=== PATIENT | female | born 1990 | race Caucasian/White ===

== ENCOUNTER → 2021-01-11 08:51 | Outpatient (BNVA) | payer MEDICAID, SELFPAY | PROVIDERS: PCP Family Medicine; Visit Provider Urology | DX: R31.29 Other microscopic hematuria (principal); N39.0 Urinary tract infection, site not specified | CPT/HCPCS: 81002; 99212 ==

== ENCOUNTER 2021-02-02 08:39 | Outpatient (REF) | payer MEDICAID, SELFPAY ==
--- NOTE | ~2021-02-02 | US_ITS ---
EXAMINATION: US ABDOMEN COMPLETE CLINICAL INFORMATION: Nausea with vomiting. COMPARISON: KUB dated 07/13/2019. CT abdomen and pelvis without contrast dated 06/29/2019. Ultrasound renals only dated 12/03/2018. Ultrasound abdomen complete dated 10/17/2016. TECHNIQUE: Real-time imaging of the abdominal viscera. FINDINGS: PANCREAS: Normal. ABDOMINAL AORTA: The proximal, mid, and distal segments are normal in caliber. INFERIOR VENA CAVA: Visualized portions are normal. LIVER: Normal. The liver is normal in size. The liver contour is normal. Parenchymal echogenicity is normal. No focal hepatic lesion. There is no intrahepatic biliary duct dilatation seen. GALLBLADDER: Normal. The gallbladder is physiologically distended without evidence of stones, sludge, polyps, wall thickening or pericholecystic fluid. COMMON BILE DUCT: Normal in caliber measuring 0.11 cm in diameter. RIGHT KIDNEY: Normal. No hydronephrosis. No renal calculi or focal parenchymal lesions. The kidney measures 10.8 cm in maximum dimension. LEFT KIDNEY: Normal. No hydronephrosis. No renal calculi or focal parenchymal lesions. The kidney measures 10.5 cm in maximum dimension. SPLEEN: Normal. The spleen measures 6.8 cm in maximum dimension. FREE FLUID: None. US/US abdomen complete IMPRESSION: Normal abdominal ultrasound.
== END 2021-02-02 08:40 | disposition home or self-care (01) ==
LOC: HO.US 08:39
PROVIDERS: PCP Family Medicine; Visit Provider Family Medicine
DX: R11.2 Nausea with vomiting, unspecified (principal)
CPT/HCPCS: 76700

== ENCOUNTER 2021-06-03 11:28 | Outpatient (REF) | payer MEDICAID, SELFPAY ==
--- NOTE | ~2021-06-03 | MM_ITS ---
EXAMINATION: MM SCREENING DIGITAL BREAST TOMOSYNTHESIS, BILATERAL CLINICAL INFORMATION: Screening. Asymptomatic. The lifetime risk of breast cancer based on the Tyrer-Cuzick Model is 16.4%. COMPARISON: Mammography: None TECHNIQUE: Digital breast tomosynthesis is performed in both the craniocaudal and mediolateral oblique views along with computer-aided detection (CAD). Synthesized 2D images are generated from the tomosynthesis. FINDINGS: The breasts are extremely dense, which lowers the sensitivity of mammography (ACR BI-RADS breast composition Category d). There are no significant masses, abnormal calcifications, or other abnormalities. Benign appearing calcifications about the areolar aspect of the left breast. Ultrasound examination of November 23, 2006 showed some rim calcified cyst within the retroareolar region of the right breast. MM/MM tomosynthesis screening BI IMPRESSION: No specific mammographic findings to suggest malignancy. ASSESSMENT: BI-RADS 2: Benign RECOMMENDATION: Routine annual mammography screening. This patient's information was entered into a reminder system with a target due date for their next mammogram.
== END 2021-06-03 11:29 | disposition home or self-care (01) ==
LOC: HO.MAMMO 11:28
PROVIDERS: Visit Provider Family Medicine
DX: Z12.31 Encounter for screening mammogram for malignant neoplasm of breast (principal)
CPT/HCPCS: 77063; 77067

== ENCOUNTER 2021-07-01 08:31 | Emergency (ER) | payer MEDICAID, SELFPAY ==
--- NOTE | ~2021-07-01 | CT_ITS ---
EXAMINATION: CT HEAD WITHOUT CONTRAST CLINICAL INFORMATION: Headache. New onset seizures. COMPARISON: MR brain dated 06/15/2020. TECHNIQUE: Contiguous axial imaging was performed from the skull base to vertex without intravenous administration of contrast. This CT examination was performed using dose optimization techniques as appropriate, variously including the following: *Automated exposure control *Adjustment of mA and/or kV according to patient size (this includes techniques or standardized protocols for targeted exams where dose is matched to indication/reason for exam; i.e. extremities or head) *Use of iterative reconstruction technique DLP: 532 mGy-cm FINDINGS: There is no evidence of acute intracranial hemorrhage or territorial infarction. No abnormal mass effect or midline shift is seen. Vora to white matter differentiation is well preserved. No extra-axial fluid collections are identified. The ventricles are normal in size. There is no abnormal attenuation within the brain parenchyma. The osseous structures and soft tissues are normal. Mucoperiosteal thickening of the left sphenoid sinus. Otherwise, the visualized paranasal sinuses and mastoid air cells are clear. CT/CT head/brain wo con IMPRESSION: No acute intracranial hemorrhage or mass effect.
[2021-07-01 09:24] VITALS: BP 98/69; PULSE 78; RESP 16; TEMP 36.6; O2SAT 98; BMI 15.7
--- NOTE | 2021-07-01 10:15 | ED_ITS ---
HPI - General Adult General Chief complaint: General Medical Stated complaint: seizure Time Seen by Provider: 07/01/21 10:08 Source: patient Mode of arrival: ambulatory Limitations: no limitations History of Present Illness HPI narrative: Patient comes to emergency room complaining of not feeling well for about 1 week. Patient states 4 days ago and 1 day ago she had seizures while she was sleeping. Patient states that she has been worked up for seizures at [facility] the beginning of the year, patient states they did an EEG but she has not the results or has not follow-up with Neurology. Over last few days, patient states that her boyfriend woke her up because she was having seizures, patient had urinary incontinence, no tongue biting. Patient was seen by her primary care physician today, according to the patient she was restarted on gabapentin. Patient states she will know why she was previously taking gabapentin, another physician asked her to stop taking of bending completely, then as mentioned above, she was asked in the last couple of days to restarted again. Related Data Home Medications Medication Instructions Recorded Confirmed quetiapine 25 mg tablet (Seroquel) 25 mg PO BEDTIME 01/11/21 Previous Rx's Medication Instructions Recorded nitrofurantoin 100 mg PO BID #14 cap 07/01/21 monohydrate/macrocrystals 100 mg capsule (Macrobid) Allergies Allergy/AdvReac Type Severity Reaction Status Date / Time Iodinated Contrast Media Allergy Severe ANAPHYLAXIS Verified 01/11/21 08:59 [IVP DYE] shellfish derived Allergy Severe ANAPHYLAXIS Verified 01/11/21 08:59 [SHELLFISH DERIVED] shrimp [SHRIMP] Allergy Severe ANAPHYLAXIS Verified 01/11/21 08:59 IV contrast Allergy Unknown swelling, Uncoded 02/18/20 00:00 rash, SOB IV contrast Dy Allergy Unknown hives, Uncoded 03/25/19 00:00 shortness of breath Review of Systems Review of Systems: Constitutional : No Weight loss, No Fever, No Chills, No Night Sweats, laying of fatigue and generalized malaise ENT/Mouth : No Hearing loss, No Ear Pain, No Nasal Congestion, No Sinus Pain, No Hoarseness, No sore throat, No Rhinorrhea, No Swallowing Difficulty Eyes: No Eye Pain, No Swelling, No Redness, No Foreign Body, No Discharge, No Vision Changes Cardiovascular : No Chest Pain, No SOB, No Dyspnea on Exertion, No Orthopnea, No Edema, No Palpitations Respiratory : No Cough, No Sputum, No Wheezing, No Smoke Exposure, No Dyspnea Gastrointestinal : No Nausea, No Vomiting, No Diarrhea, No Constipation, No abdominal Pain, No Hematochezia, No Melena Genitourinary : no irregular bleeding, No Dysuria, No Urinary Frequency, No Hematuria, No Urinary Incontinence, No Urgency, No Flank Pain, No Urinary Flow Changes, No Hesitancy Musculoskeletal : No joint pain, No Myalgias, No Joint Swelling Skin : No Skin Lesions, No rash Neuro : No Weakness, No Numbness, No Paresthesias, complaining of headaches, seizures Psych : No Anxiety/Panic, No Depression, No SI/HI/AH/VH, No Social Issues, Heme/Lymph: No Bruising, No Bleeding,No Lymphadenopathy Endocrine : No Polyuria, No Polydipsia, No Temperature Intolerance [facility] Past Medical History Medical History (Updated 07/01/21 @ 12:40 by Joaquina Dunn MD) Anxiety Bipolar disorder Cervical lymphadenopathy Chronic fatigue Chronic post-traumatic stress disorder (PTSD) Depression Dysphagia Fibromyalgia Lumbar sprain Microscopic hematuria 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 Oriented X3. No acute distress. Eyes: Pupils equal, round and reactive to light. ENT: Pharynx normal. Neck: Normal inspection. Neck supple. No lymph nodes noted. No crepitus CVS: Normal heart rate and rhythm. Pulses normal. Normal S1 and S2 Respiratory: No respiratory distress. Breath sounds normal. No Wheezing. No rales Abdomen: Soft and nontender. No rigidity. No distention. good BS x4 Skin: Skin warm and dry. Normal skin color. Normal skin turgor. Extremities: No lower extremity edema. No Lacerations. No Rash Neuro: Oriented X 3. No motor deficit. No sensory deficit. Moving all extermities. No slurred speech. Course Course Course Narrative: We received records from [facility]. Patient was admitted from 02/22/2021 to 02/26/2021 for evaluation of seizure-like activity. Ambulatory EEG which was done on 12/09/2020 was normal, MRI done on 01/18/2021 was normal, showed no intracranial mass or mesial temporal sclerosis. Patient also had an outpatient cardiac workup which was normal. Gabapentin was not continued for fibromyalgia when patient was discharged. Seems that patient has this seizure- like activity during times of stress. Urinalysis from yesterday shows positive nitrates. Patient will be treated for UTI. Patient did not provide a urine sample here in the emergency room. Patient's CT scan , labs show no acute pathology. Patient likely having pseudoseizures. At this time, anti epileptics will not be started. Patient instructed to follow-up with neurology Medical Decision Making Lab Data Result diagrams: 07/01/21 11:43 07/01/21 11:42 Labs: Lab Results 07/01/21 07/01/21 07/01/21 Range/Units 11:42 11:42 11:42 WBC (4.8-10.8) X10*3/uL RBC (4.20-5.50) X10*6/uL Hgb (12.0-16.0) g/dl Hct (37-47) % MCV (80-98) fL MCH (27.0-33.0) pg MCHC (31.0-35.0) g/dl RDW (11.0-16.0) % Plt Count (160-400) X10*3/uL MPV (9.4-12.3) fL Immature Gran % (Auto) (0.0-0.4) % Neut % (Auto) (45-73) % Lymph % (Auto) (20-40) % [place] % (Auto) (2-11) % Eos % (Auto) (0-4) % Baso % (Auto) (0-2) % Lymph # (Auto) (1.2-4.9) X10*3/uL [place] # (Auto) (0.1-1.2) X10*3/uL Eos # (Auto) (0.0-0.4) X10*3/uL Baso # (Auto) (0.0-0.2) X10*3/uL Abs Immat Gran (auto) (0.00-0.03) X10*3/uL Absolute Neuts (auto) (2.0-8.3) X10*3/uL Absolute Nucleated RBC (0.0-0.012) X10*3/uL Nucleated RBC % (auto) (0.0-0.2) /100WBC Sodium 140 (135-145) mmol/L Potassium 4.3 (3.3-5.1) mmol/L Chloride 107 (96-108) mmol/L Carbon Dioxide 28 (22-29) mmol/L Anion Gap 9 L (12-20) BUN 6 L (9-16) mg/dL Creatinine 0.61 (0.5-1.4) mg/dL Estim Creat Clear Calc 74.6 Estimated GFR > 60 Random Glucose 89 (60-115) mg/dL Lactic Acid 0.8 (0.5-2.0) mmol/L Calcium 9.2 (8.4-10.2) mg/dL Total Bilirubin 0.8 (0.0-1.0) mg/dL Direct Bilirubin 0.2 (0.0-0.5) mg/dL AST 15 (5-31) U/L ALT 10 (0-31) U/L Alkaline Phosphatase 65 (39-117) U/L Total Protein 6.4 L (6.5-8.0) g/dL Albumin 4.3 (3.5-5.0) g/dL Beta HCG, Quant < 2 mIU/mL COVID-19 ([facility]) Negative (Negative) COVID-19 Clin Com See Note 07/01/21 Range/Units 11:43 WBC 8.5 (4.8-10.8) X10*3/uL RBC 4.32 (4.20-5.50) X10*6/uL Hgb 13.1 (12.0-16.0) g/dl Hct 38.8 (37-47) % MCV 89.8 (80-98) fL MCH 30.3 (27.0-33.0) pg MCHC 33.8 (31.0-35.0) g/dl RDW 12.9 (11.0-16.0) % Plt Count 242 (160-400) X10*3/uL MPV 9.2 L (9.4-12.3) fL Immature Gran % (Auto) 0.2 (0.0-0.4) % Neut % (Auto) 56.9 (45-73) % Lymph % (Auto) 31.2 (20-40) % [place] % (Auto) 8.5 (2-11) % Eos % (Auto) 2.1 (0-4) % Baso % (Auto) 1.1 (0-2) % Lymph # (Auto) 2.6 (1.2-4.9) X10*3/uL [place] # (Auto) 0.7 (0.1-1.2) X10*3/uL Eos # (Auto) 0.2 (0.0-0.4) X10*3/uL Baso # (Auto) 0.1 (0.0-0.2) X10*3/uL Abs Immat Gran (auto) 0.02 (0.00-0.03) X10*3/uL Absolute Neuts (auto) 4.8 (2.0-8.3) X10*3/uL Absolute Nucleated RBC 0.000 (0.0-0.012) X10*3/uL Nucleated RBC % (auto) 0.0 (0.0-0.2) /100WBC Sodium (135-145) mmol/L Potassium (3.3-5.1) mmol/L Chloride (96-108) mmol/L Carbon Dioxide (22-29) mmol/L Anion Gap (12-20) BUN (9-16) mg/dL Creatinine (0.5-1.4) mg/dL Estim Creat Clear Calc Estimated GFR Random Glucose (60-115) mg/dL Lactic Acid (0.5-2.0) mmol/L Calcium (8.4-10.2) mg/dL Total Bilirubin (0.0-1.0) mg/dL Direct Bilirubin (0.0-0.5) mg/dL AST (5-31) U/L ALT (0-31) U/L Alkaline Phosphatase (39-117) U/L Total Protein (6.5-8.0) g/dL Albumin (3.5-5.0) g/dL Beta HCG, Quant mIU/mL COVID-19 ([facility]) (Negative) COVID-19 Clin Com Imaging Data CT scan - head: Radiologist's impression: There is no evidence of acute intracranial hemorrhage or territorial infarction. No abnormal mass effect or midline shift is seen. Vora to white matter differentiation is well preserved. No extra-axial fluid collections are identified. The ventricles are normal in size. There is no abnormal attenuation within the brain parenchyma. The osseous structures and soft tissues are normal. Mucoperiosteal thickening of the left sphenoid sinus. Otherwise, the visualized paranasal sinuses and mastoid air cells are clear. ? CT/CT head/brain wo con IMPRESSION: No acute intracranial hemorrhage or mass effect. Discharge Plan Discharge Clinical Impression: Malaise, UTI (urinary tract infection) Patient Disposition: Home, Self-Care Instructions: Weakness (ED), Fatigue (ED) Prescriptions: New nitrofurantoin monohyd/m-cryst [Macrobid] 100 mg capsule 100 mg PO BID Qty: 14 RF: 0
[2021-07-01 11:46] LABS: MANUAL DIFF FLAG NO
[2021-07-01 11:48] LABS: Basophils Absolute Auto 0.1 X10*3/uL (0.0-0.2); Basophils Percent Auto 1.1 % (0-2); Eosinophils Absolute Auto 0.2 X10*3/uL (0.0-0.4); Eosinophils Percent Auto 2.1 % (0-4); Hematocrit 38.8 % (37-47); Hemoglobin 13.1 g/dl (12.0-16.0); Imm Gran Abs Auto 0.02 X10*3/uL (0.00-0.03); Imm Gran Pct Auto 0.2 % (0.0-0.4); Lymphocytes Absolute Auto 2.6 X10*3/uL (1.2-4.9); Lymphocytes Percent Auto 31.2 % (20-40); Mean Corpuscular HGB Conc 33.8 g/dl (31.0-35.0); Mean Corpuscular Hemoglobin 30.3 pg (27.0-33.0); Mean Corpuscular Volume 89.8 fL (80-98); Mean Platelet Volume 9.2 fL (9.4-12.3); Monocytes Absolute Auto 0.7 X10*3/uL (0.1-1.2); Monocytes Percent Auto 8.5 % (2-11); Neutrophils Absolute Auto 4.8 X10*3/uL (2.0-8.3); Neutrophils Percent Auto 56.9 % (45-73); Platelet Count 242 X10*3/uL (160-400); Red Blood Count 4.32 X10*6/uL (4.20-5.50); Red Cell Distribution Width 12.9 % (11.0-16.0); White Blood Count 8.5 X10*3/uL (4.8-10.8)
[2021-07-01 12:04] LABS: Lactic Acid 0.8 mmol/L (0.5-2.0)
[2021-07-01 12:05] LABS: COVID-19 Test Negative (Negative); IDNOW Serial# 9DD0AD1C
[2021-07-01 12:11] LABS: HCG Quantitative < 2 mIU/mL
[2021-07-01 12:12] LABS: Alanine Aminotransferase 10 U/L (0-31); Albumin Level 4.3 g/dL (3.5-5.0); Alkaline Phosphatase 65 U/L (39-117); Anion Gap 9 (12-20); Aspartate Amino Transferase 15 U/L (5-31); Bilirubin Direct 0.2 mg/dL (0.0-0.5); Bilirubin Total 0.8 mg/dL (0.0-1.0); Blood Urea Nitrogen 6 mg/dL (9-16); Calcium 9.2 mg/dL (8.4-10.2); Carbon Dioxide 28 mmol/L (22-29); Chloride 107 mmol/L (96-108); Creatinine Clr Calc Pharmacy 74.6; Estimated Glomerular Filt Rate > 60; Glucose Random 89 mg/dL (60-115); Potassium 4.3 mmol/L (3.3-5.1); Sodium 140 mmol/L (135-145); Total Protein 6.4 g/dL (6.5-8.0)
== END 2021-07-01 13:07 | disposition home or self-care (01) ==
PROVIDERS: Emergency Provider Emergency Medicine; PCP Family Medicine
DX: N39.0 Urinary tract infection, site not specified (principal); R53.81 Other malaise; R56.9 Unspecified convulsions; Z20.822 Contact with and (suspected) exposure to COVID-19; Z79.899 Other long term (current) drug therapy
CPT/HCPCS: 36415; 70450; 80048; 80076; 83605; 84702; 85025; 87635; 99283; 99284

== ENCOUNTER 2022-01-31 11:14 | Emergency (ER) | payer MEDICAID, SELFPAY ==
[2022-01-31 12:04] VITALS: BP 113/64; PULSE 100; RESP 19; TEMP 37.2; O2SAT 98; BMI 20.2
[2022-01-31 12:30] LABS: COVID-19 Test Negative (Negative); IDNOW Serial# 16C4AD1C; Influenza A Positive (Negative); Influenza B2 Negative (Negative)
[2022-01-31 14:57] VITALS: PULSE 96; O2SAT 100
--- NOTE | 2022-01-31 15:36 | ED.URI ---
HPI - URI/Sore Throat General Chief Complaint: Upper Respiratory Symptoms Stated Complaint: fever 22 wks back pain Time Seen by Provider: 01/31/22 14:48 Source: patient Mode of arrival: ambulatory Limitations: no limitations History of Present Illness HPI Narrative: 31-year-old 22 week female presents with fever, body aches, cough, nasal congestion, that started 2 days ago but became worse yesterday. Patient states she has bilateral low back pain, no pelvic pain, no vaginal bleeding, no vaginal discharge, no pelvic cramping. Patient has been taking Tylenol, she does not have an inhaler at home, but has used inhalers in the past for upper respiratory infection Related Data Home Medications Medication Instructions Recorded Confirmed quetiapine 25 mg tablet (Seroquel) 25 mg PO BEDTIME 01/11/21 Previous Rx's Medication Instructions Recorded nitrofurantoin 100 mg PO BID #14 cap 07/01/21 monohydrate/macrocrystals 100 mg capsule (Macrobid) albuterol sulfate 90 mcg/actuation 2 puff INHALATION Q4-6H PRN #6.7 g 01/31/22 aerosol inhaler oseltamivir 75 mg capsule 75 mg PO BID 5 Days #10 cap 01/31/22 Allergies Allergy/AdvReac Type Severity Reaction Status Date / Time Iodinated Contrast Media Allergy Severe ANAPHYLAXIS Verified 01/31/22 12:04 [IVP DYE] shellfish derived Allergy Severe ANAPHYLAXIS Verified 01/31/22 12:04 [SHELLFISH DERIVED] shrimp [SHRIMP] Allergy Severe ANAPHYLAXIS Verified 01/31/22 12:04 IV contrast Allergy Unknown swelling, Uncoded 01/31/22 12:04 rash, SOB IV contrast Dy Allergy Unknown hives, Uncoded 01/31/22 12:04 shortness of breath Review of Systems Constitutional: Constitutional: Reports body ache(s), Reports chills, Reports fatigue, Reports fever(s), Reports headache(s), Reports malaise and Denies weakness Eyes: Eyes: Denies diplopia ENT: Denies vertigo, Denies dizziness, Denies otalgia, Reports headache(s), Denies mouth pain, Denies post nasal drip, Denies sinus pain, Denies sinus pressure, Denies sore throat and Denies throat swelling Cardiovascular: Cardiovascular: Denies chest pain, Denies syncope, Denies leg edema, Denies lightheadedness, Denies Loss of Consciousness, Denies palpitations and Denies dyspnea Respiratory: Respiratory: Denies chest congestion, Reports cough, Denies pain on inspiration, Denies dyspnea and Denies wheezing Gastrointestinal: Gastrointestinal: Denies abdominal pain, Denies hematochezia, Denies constipation, Denies diarrhea, Denies nausea and Denies vomiting Genitourinary: Genitourinary: Denies abnormal vaginal bleeding, Denies pelvic pain and Denies vaginal discharge Musculoskeletal: Musculoskeletal: Reports back pain and Reports myalgias Neurologic: Denies confusion, Denies vertigo, Denies dizziness, Denies syncope, Reports headache(s) and Denies weakness Psychiatric: Psychiatric: Denies anxiety, Denies confusion and Denies depression Endocrine: Endocrine: Reports fatigue and Denies palpitations Allergic/Immunologic: Allergic/Immunologic: Denies throat swelling and Denies wheezing PMFSH Past Medical History Medical History Anxiety Bipolar disorder Cervical lymphadenopathy Chronic fatigue Chronic post-traumatic stress disorder (PTSD) Depression Dysphagia Fibromyalgia Lumbar sprain Microscopic hematuria 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 Underweight Surgical History History of surgery Social History Social History (Updated 01/11/21 @ 08:27 by LELA Doe) Advance Directives: No Advance Directives Information Provided: No Physical Exam Vital Signs: Vital Signs: Last Vital Signs Temp 99.0 F 01/31/22 12:04 Pulse 96 01/31/22 14:57 Resp 19 01/31/22 12:04 BP 113/64 01/31/22 12:04 Pulse Ox 100 01/31/22 14:57 BMI result Body Mass Index 20.2 Const: General: No confusion Nutritional Appearance: well nourished Orientation/consciousness: No confusion Limitations: no limitations HEENT: Head: Yes normal to inspection, Yes normocephalic and Yes atraumatic Ears: hearing grossly normal bilaterally, external ears normal, TM's normal bilaterally and EAC's normal General nose exam: Normal external nose present Face and sinus: Yes normal facial exam and Yes sinuses nontender Mouth: Normal oral and palatal mucosa present Throat: Yes posterior oropharynx normal Eyes: Conjunctivae: conjunctivae normal Pupils: Equal, round and reactive pupils present EOM: EOMs intact bilaterally Neck: Neck: Yes full ROM, Yes no lymphadenopathy and Yes supple Resp: Effort & Inspection: normal respiratory effort and able to speak in complete sentences Auscultation: clear to auscultation bilaterally, no crackles, no rales, no rhonchi and no wheezes Cardio: Rate: regular rate Rhythm: regular rhythm Heart sounds: S1 normal heart sound present and S2 normal heart sound present GI: Inspection: Yes normal to inspection Palpation (GI): Soft to palpation, nontender, no guarding and not rigid Percussion: Yes normal to percussion Auscultation: normal bowel sounds : General: Yes no CVA tenderness Back/Spine/Pelvis: Back: no CVA tenderness Skin: General skin exam: no rashes or lesions noted Neuro: General: No confusion Cranial nerves: Yes Equal, round and reactive pupils present Extrem: General: Yes normal to inspection and Yes full ROM Psych: Appearance: grossly normal Affect: normal affect Attitude: cooperative Thought process: Normal thought process present Course Course Course Narrative: 31-year-old 22 weeks female presents for flu-like symptoms that are ongoing for 2 days. Patient is afebrile, is satting 100% on room air, respiratory rate 18. No work of breathing, patient is mildly ill appearing. Influenza positive [place] texted Dr Collins on the efficacy of starting this patient on Tamiflu, he suggested we do start her on Tamiflu Counseled patient to push fluids, keep up with Tylenol, prescribed albuterol inhaler. Gave return precautions of chest pain, shortness of breath, pelvic cramping, vaginal bleeding, vaginal discharge, worsening symptoms, return to emergency room MDM - URI/Sore Throat Lab Data Labs: Lab Results 01/31/22 01/31/22 Range/Units 12:08 12:08 COVID-19 ([facility]) Negative (Negative) COVID-19 Clin Com See Note Influenza Type A ([facility]) Positive A (Negative) Influenza Type B ([facility]) Negative (Negative) Influenza A & B Note See Note Discharge Plan Discharge Clinical Impression: Influenza A Patient Disposition: Home, Self-Care Instructions: Influenza (ED) Additional Instructions: Please keep up with your Tylenol dosing, it is important that you suppressor fevers while you are . Please use your albuterol inhaler, 2 puffs every 4 hours while you are awake for the next 3 or 4 days. Please take the Tamiflu as prescribed. Please call your OBGYN to tell them you tested influenza positive today, and that we started you on Tamiflu. If you have chest pain, shortness of breath, if you have worsening symptoms, please return to emergency room Prescriptions: New oseltamivir 75 mg capsule 75 mg PO BID 5 Days Qty: 10 0RF albuterol sulfate 90 mcg/actuation HFA aerosol inhaler 2 puff inhalation Q4-6H PRN (Reason: shortness of breath or wheezing) Qty: 6.7 0RF No Action nitrofurantoin monohyd/m-cryst [Macrobid] 100 mg capsule 100 mg PO BID Qty: 14 0RF Rx Instructions: must administer with a meal/food Stand Alone Forms: Work/School Release Interventions: ED Discharge Assessment Last Done: 01/31/22 15:39
== END 2022-01-31 15:40 | disposition home or self-care (01) ==
PROVIDERS: Emergency Provider Emergency Medicine; PCP Family Medicine
DX: O26.92 Pregnancy related conditions, unspecified, second trimester (principal); J10.1 Influenza due to other identified influenza virus with other respiratory manifestations; Z3A.22 22 weeks gestation of pregnancy; Z20.822 Contact with and (suspected) exposure to COVID-19; Z79.899 Other long term (current) drug therapy
CPT/HCPCS: 87502; 87635; 99283

== ENCOUNTER → 2022-03-30 07:13 | Outpatient (REF) | payer MEDICAID, SELFPAY ==
--- NOTE | 2022-03-30 07:15 | CA_ITS ---
Transthoracic Echocardiogram Patient (Last, First, Middle): Aury Byrne, Gender: Female Date of : 1990 Age: 32 Procedure Date: 03/30/2022 Procedure Type: Transthoracic Echocardiogram Location: OP Height: 149.86 cm Weight: 46.72 kg BSA: 1.39 m2 Heart Rate: bpm BP: 90 / 55 mmHg Ticket Writer: TO Referring MD: Patria Sanders DO Cake Tester: Fidel Alston MD Symptoms: DYSPNEA R06.00 Study Quality: Fair ECG Rhythm: Sinus Conclusions: - Essentially normal study Findings Left Ventricle Normal left ventricular size, thickness, and systolic function. The visually estimated ejection fraction is between 60-65%. Diastolic function is normal for age. Right Ventricle Normal right ventricular cavity size and systolic function. Atria Both atria are normal in size. There is a mobile atrial septum noted. Interatrial shunt cannot be excluded. Aortic Valve Normal aortic valve structure and function. There is no aortic valve stenosis. There is no aortic valve regurgitation. Mitral Valve Normal mitral valve structure and function. There is trace mitral valve regurgitation. There is no mitral valve stenosis. Pulmonic Valve The pulmonic valve is likely normal. Tricuspid Valve Normal tricuspid valve structure. There is trace tricuspid valve regurgitation. The right ventricular systolic pressure is normal. The right ventricular systolic pressure is 20 mmHg. Normal right atrial pressure. There is no evidence of pulmonary hypertension. Great Vessels All visible segments of the aorta are normal in size. The pulmonary artery was not well visualized. Venous The inferior vena cava is normal in size and collapses greater than 50% with inspiration. Pericardium/Pleural There is no evidence of pericardial effusion. Prior Study Comparison No significant change compared to prior study dated: 06/02/2020. Recommendations, Care & Conclusions Recommend contrast study to evaluate intracardiac shunting. Measurements 2D Linear Measurements IVSd: 0.94 0.6-0.9/0.6-1.0 cm LVIDd: 3.74 3.9-5.3/4.2-5.9 cm LVIDd Index: 2.69 2.4-3.2/2.2-3.1 cm/m2 LVIDs: 2.60 2.0-3.6 cm LVPWd: 0.84 0.7-1.1 cm LA Diam: 2.90 2.7-3.8/3.0-4.0 cm LAIDs Index: 2.09 1.5-2.3 cm/m2 LV Mass: 120.04 67-162/88-224 g LV Mass Index: 86.36 43-95/49-115 g/m2 LVOT Diam: 2.00 3.0+(-)1.3 cm 2D Systolic Function EF 4C: 60.60 >55% EF 2C: 55.40 >55% EF BiP: 57.50 >55% Mitral Valve MV Pk E: 1.01 MV PK A: 0.89 MV Decel Time: 197.00 E/A: 1.10 E'Lateral: 10.80 E'Medial: 8.05 E/E' Med: 12.50 E/E' Lat: 9.40 PHT: 58.00 MVA PHT: 3.79 Decel [place]: 5.16 Aortic Valve AoV Pk Yaya: 1.46 AoV Mn Yaya: 0.97 AoV VTI: 0.25 AoV Pk Grad: 9.00 Aov Mn Grad: 4.00 INOCENCIO Cont.VTI: 2.60 LVOT LVOT Pk Yaya: 1.19 LVOT Mn Yaya: 0.81 LVOT VTI: 0.21 LVOT Pk Grad: 6.00 LVOT Mn Grad: 3.00 LVOT Diam: 2.00 LVOT Area: 3.14 Diastolic Function MV Pk E: 1.01 MV Pk A: 0.89 E/A: 1.10 E'Medial: 8.05 E/E' Med: 12.50 E' Laterial: 10.80 E/E' Lat: 9.40 Right Ventricle TAPSE (mm): 20.30 TVS' Yaya: 12.30 Tricuspid Valve TR Pk Yaya: 2.09 TR Pk Grad: 17.00 RA Press: 3.00 RVSP: 20.00 Great Vessels Aorta Sinus of Valsalva: 2.69 2.0-3.5 cm Ao Arch: 2.00 Updated in Other Vendor System with Status of Final Fidel Alston MD electronically signed on 03/30/2022 3:11:07 PM with status of Final
== END ==
LOC: HO.CARD 07:13
PROVIDERS: PCP Family Medicine; Visit Provider Family Medicine
DX: R06.00 Dyspnea, unspecified (principal)
CPT/HCPCS: 93306

== ENCOUNTER 2023-03-01 15:52 | Emergency (ER) | payer MEDICAID, SELFPAY ==
[2023-03-01 15:57] VITALS: BP 119/76; PULSE 82; RESP 18; TEMP 36.6; O2SAT 98; BMI 17.4
--- NOTE | 2023-03-01 15:57 | ED_ITS ---
HPI - Female Genitourinary General Chief complaint: Vaginal Bleeding Stated complaint: vaginal bleeding Time Seen by Provider: 03/01/23 16:22 Source: patient and RN notes reviewed Mode of arrival: ambulatory Limitations: no limitations History of Present Illness HPI Narrative: This is a 32-year-old female, , who is 12 weeks , presenting to the emergency department for evaluation of low back pain, vaginal bleeding and abdominal cramping since Saturday, February 25, 2023. Patient reports that 2 weeks ago she was informed that she was having a miscarriage and was going to pass it naturally. She states that on Sunday she developed vaginal bleeding, low back pain and abdominal cramping. She had an ultrasound this morning to see if she fully passed the fetus however was told that she is still retaining a gestational sac and is scheduled for a D&C tomorrow at [facility]. She states that her pain has not been well managed and has had some intermittent nausea and vomiting since Sunday. She had some fevers on Sunday and body aches on Sunday, but has not had any fevers or chills since. + urinary frequency, + dysuria No other complaints or concerns at this time. MD elicited complaint: dysuria, vaginal bleeding and possible miscarriage Pertinent past history: prior miscarriages Location of symptoms: suprapubic Severity: moderate Female Urogenital Radiation: Non-Radiating Quality of pain: cramping Consistency: constant Vaginal bleeding: moderate Urinary symptoms: Dysuria and Frequency Exacerbating factors: none Relieving factors: none Associated symptoms: denies other symptoms Treatment prior to arrival: none Related Data Home Medications Medication Instructions Recorded Confirmed quetiapine 25 mg tablet (Seroquel) 25 mg PO BEDTIME 01/11/21 Previous Rx's Medication Instructions Recorded nitrofurantoin 100 mg PO BID #14 caps 07/01/21 monohydrate/macrocrystals 100 mg capsule (Macrobid) albuterol sulfate 90 mcg/actuation 2 puff inhalation Q4-6H PRN 01/31/22 aerosol inhaler shortness of breath or wheezing #6.7 grams oseltamivir 75 mg capsule 75 mg PO BID 5 days #10 caps 01/31/22 ondansetron 4 mg disintegrating 4 mg PO Q6H PRN nausea and 03/01/23 tablet vomiting #3 tabs oxycodone-acetaminophen 5 mg-325 1 tab PO Q8H PRN pain #2 tabs 03/01/ mg tablet Allergies Allergy/AdvReac Type Severity Reaction Status Date / Time Iodinated Contrast Media Allergy Severe ANAPHYLAXIS Verified 01/31/22 12:04 [IVP DYE] shellfish derived Allergy Severe ANAPHYLAXIS Verified 01/31/22 12:04 [SHELLFISH DERIVED] shrimp [SHRIMP] Allergy Severe ANAPHYLAXIS Verified 01/31/22 12:04 IV contrast Allergy Unknown swelling, Uncoded 01/31/22 12:04 rash, SOB IV contrast Dy Allergy Unknown hives, Uncoded 01/31/22 12:04 shortness of breath Review of Systems Review of Systems: Constitutional: No Weight loss, No Fever, No Chills, No Night Sweats, No Fatigue, No Malaise ENT/Mouth: No Hearing loss, No Ear Pain, No Nasal Congestion, No Sinus Pain, No Hoarseness, No sore throat, No Rhinorrhea, No Swallowing Difficulty Eyes: No Eye Pain, No Swelling, No Redness, No Foreign Body, No Discharge, No Vision Changes Cardiovascular: No Chest Pain, No SOB, No Dyspnea on Exertion, No Orthopnea, No Edema, No Palpitations Respiratory: No Cough, No Sputum, No Wheezing, No Smoke Exposure, No Dyspnea Gastrointestinal: + Nausea, + Vomiting, No Diarrhea, No Constipation, +Abdominal pain, No Hematochezia, No Melena Genitourinary: + irregular bleeding, No Dysuria, No Urinary Frequency, No Hematuria, No Urinary Incontinence/retention, No Urgency, No Flank Pain, No Urinary Flow Changes, No Hesitancy Musculoskeletal: No joint pain, No Myalgias, No Joint Swelling Skin: No Skin Lesions, No rash Neuro: No Weakness, No Numbness, No Paresthesias, No Loss of Consciousness, No Dizziness, No Headache Psych: No Anxiety/Panic, No Depression, No SI/HI/AH/VH, No Social Issues, Heme/Lymph: No Bruising, No Bleeding,No Lymphadenopathy Endocrine: No Polyuria, No Polydipsia, No Temperature Intolerance Yes all other systems are reviewed and are negative Constitutional: Constitutional: Reports as per HPI [facility] Past Medical History Medical History Anxiety Bipolar disorder Cervical lymphadenopathy Chronic fatigue Chronic post-traumatic stress disorder (PTSD) Depression Dysphagia Fibromyalgia Lumbar sprain Microscopic hematuria 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 Underweight Surgical History History of surgery Social History Social History (Updated 01/11/21 @ 08:27 by LELA Doe) Alcohol intake: never Smoked in Last 30 Days: No Use of substances other than those prescribed or required for medical reasons: No Advance Directives: No Advance Directives Information Provided: No Physical Exam 2 Vital Signs: Vital Signs: Last Vital Signs Temp 98.1 F 03/01/23 19:35 Pulse 81 03/01/23 19:35 Resp 16 03/01/23 19:35 BP 112/73 03/01/23 19:35 Pulse Ox 100 03/01/23 19:35 O2 Del Method Room Air 03/01/23 19:35 BMI result Body Mass Index 17.4 Const: General: cooperative, comfortable and no acute distress Orientation/consciousness: patient oriented x3 Limitations: no limitations HEENT: Head: Yes normal to inspection, Yes normocephalic and Yes atraumatic Ears: hearing grossly normal bilaterally General nose exam: Normal external nose present Face and sinus: Yes normal facial exam Mouth: Normal oral and palatal mucosa present, oropharynx normal and moist mucous membranes Throat: Yes posterior oropharynx normal Eyes: General: appearance normal, both eyes and all related structures E yelids: Yes eyelids normal Conjunctivae: conjunctivae normal Sclerae: sclerae normal Pupils: Equal, round and reactive pupils present EOM: EOMs intact bilaterally Neck: Neck: Yes normal visual inspection, Yes full ROM and Yes no lymphadenopathy Lymphatic: no lymphadenopathy noted Chest: Chest palpation & inspection: normal inspection of the chest Resp: Effort & Inspection: normal respiratory effort and able to speak in complete sentences Auscultation: clear to auscultation bilaterally, no crackles, no rales, no rhonchi and no wheezes Cardio: Rate: regular rate Rhythm: regular rhythm Heart sounds: S1 normal heart sound present and S2 normal heart sound present GI: Other: Abdomen is soft, with diffuse tenderness to palpation throughout entire abdomen, no rebound or guarding. Most tenderness in the suprapubic region. Normoactive bowel sounds present in all 4 quadrants. Inspection: Yes normal to inspection Skin: General skin exam: no rashes or lesions noted Trauma: no lacerations or abrasions Wounds: no wounds Neuro: General: patient oriented x3 and moves all extremities Cranial nerves: Yes Equal, round and reactive pupils present Extrem: General: Yes normal to inspection Right upper extremity: normal to inspection Left upper extremity: normal to inspection Right lower extremity: normal to inspection Left lower extremity: normal to inspection Course Course Course Narrative: This is a rapid medical exam. Deferred additional HPI, ROS, PE to primary provider. 32 yo female currently 12 weeks (had plans to terminate tomorrow) has had vag bleeding/abdominal pain/back pain since Sunday. Saw OB Sunday and per patient still had retained POS so plans for D&C tomorrow. Increasing pain today, heavy vag bleeding Had fever Sunday 100.9. No fever since then but still having chills. Had ultrasound this morning at [facility]. Will check labs, UA, ur preg VSS Reevaluation(s) Reevaluation #1: Patient has mild leukocytosis at 13.9 I suspect that this is reactive given patient's pain. H&H is stable, within normal limits. Her urine with moderate blood, and urine positive. HCG quant at 13,549. Patient re-evaluated and is feeling much better after receiving morphine 4 mg and IV fluids. Patient admits to having some nausea, Zofran 4 mg IV push ordered. Received [facility] record, missed as of February 20, 2023. Patient presenting with D&C paperwork. Procedure will be done by Dr. Cross tomorrow at 11:00AM. Given stable H&H, and good pain control, discussed with patient that patient needs to follow-up with the surgeon tomorrow for resolution of her symptoms. I will discharge patient on Zofran and pain control. Patient understands and agrees with plan. Vital signs remained stable, patient stable for discharge. Time: 18:58 Medications Administered Discontinued Medications Generic Name Dose Route Start Last Admin Trade Name Freq PRN Reason Stop Dose Admin Sodium Chloride 1,000 mls @ 999 mls/hr 03/01/23 17:01 03/01/23 19:41 Ns IV 03/01/23 18:01 Infused .Q1H1M ONE Infusion Morphine Sulfate 4 mg 03/01/23 17:06 03/01/23 17:46 Morphine Sulfate 4 Mg/Ml Cartridge IVPUSH 03/01/23 17:07 4 mg ONCE ONE Administration Protocol Ondansetron HCl 4 mg 03/01/23 18:58 03/01/23 19:39 Ondansetron Hcl 4 Mg/2 Ml Vial IVPUSH 03/01/23 18:59 4 mg ONCE ONE Administration Medical Decision Making Medical Decision Making [facility] Narrative: 32-year old female, 12 weeks , presenting to emergency department for evaluation of abdominal cramping, back cramping and vaginal bleeding since Sunday. Patient was 12 weeks when she miscarried 2 weeks ago, she had an ultrasound this morning at [facility] and was told that she still has the sac retained and they scheduled a D&C for tomorrow. She has been taking Tylenol for her pain without any relief. Plan: Labs, UA, IV fluids, pain management Differential Diagnosis Differential Diagnoses: The differential diagnosis associated with the presentation includes Miscarriage, spontaneous , amenorrhea, UTI Admission/Observation Consideration of admission/observation: Escalation of care including admission/observation considered Lab Data [facility] Lab Attestation statement: I reviewed the patient's lab results. 03/01/23 16:41 03/01/23 16:41 Labs: Lab Results 03/01/23 03/01/23 03/01/23 Range/Units 16:40 16:41 16:41 WBC 13.9 H (4.8-10.8) X10*3/uL RBC 4.01 L (4.20-5.50) X10*6/uL Hgb 12.1 (12.0-16.0) g/dl Hct 35.7 L (37.0-47.0) % MCV 89.0 (80.0-98.0) fL MCH 30.2 (27.0-33.0) pg MCHC 33.9 (31.0-35.0) g/dl RDW 13.2 (11.0-16.0) % Plt Count 292 (160-400) X10*3/uL MPV 9.7 (9.4-12.3) fL Immature Gran % (Auto) 0.4 (0.0-0.4) % Neut % (Auto) 64.6 (45-73) % Lymph % (Auto) 26.4 (20-40) % Wright % (Auto) 5.8 (2-11) % Eos % (Auto) 1.9 (0-4) % Baso % (Auto) 0.9 (0-2) % Lymph # (Auto) 3.7 (1.2-4.9) X10*3/uL Wright # (Auto) 0.8 (0.1-1.2) X10*3/uL Eos # (Auto) 0.3 (0.0-0.4) X10*3/uL Baso # (Auto) 0.1 (0.0-0.2) X10*3/uL Abs Immat Gran (auto) 0.05 H (0.00-0.03) X10*3/uL Absolute Neuts (auto) 9.0 H (2.0-8.3) x10*3/uL Absolute Nucleated RBC 0.000 (0.0-0.012) X10*3/uL Nucleated RBC % (auto) 0.0 (0.0-0.2) /100WBC Sodium 137 (135-145) mmol/L Potassium 3.4 D (3.3-5.1) mmol/L Chloride 106 (96-108) mmol/L Carbon Dioxide 21 L (22-29) mmol/L Anion Gap 13 (12-20) BUN 6 L (9-16) mg/dL Creatinine 0.57 (0.5-1.4) mg/dL Estim Creat Clear Calc 87.2 Estimated GFR > 60 Random Glucose 112 (60-115) mg/dL Calcium 9.0 (8.4-10.2) mg/dL Total Bilirubin 0.3 (0.0-1.0) mg/dL Direct Bilirubin 0.1 (0.0-0.5) mg/dL AST 13 (5-31) U/L ALT 8 (0-31) U/L Alkaline Phosphatase 84 (39-117) U/L Total Protein 6.7 (6.5-8.0) g/dL Albumin 4.1 (3.5-5.0) g/dL Beta HCG, Quant mIU/mL Urine Color Urine Appearance Urine pH (5.0-9.0) Ur Specific [place] (1.005-1.025) Urine Protein (Neg-Trace) mg/dL Urine Glucose (UA) (Negative) mg/dL Urine Ketones (Negative) mg/dL Urine Blood (Negative) Urine Nitrite (Negative) Ur Leukocyte Esterase (Negative) Urine RBC (0-2) /HPF Urine WBC (0-5) /HPF Ur Squamous Epith Cells (0-2) /HPF Urine Bacteria (None Seen) Hyaline Casts (0-2) /LPF Urine Test (NEGATIVE) Blood Type O Positive 03/01/23 03/01/23 03/01/23 Range/Units 16:41 16:41 16:41 WBC (4.8-10.8) X10*3/uL RBC (4.20-5.50) X10*6/uL Hgb (12.0-16.0) g/dl Hct (37.0-47.0) % MCV (80.0-98.0) fL MCH (27.0-33.0) pg MCHC (31.0-35.0) g/dl RDW (11.0-16.0) % Plt Count (160-400) X10*3/uL MPV (9.4-12.3) fL Immature Gran % (Auto) (0.0-0.4) % Neut % (Auto) (45-73) % Lymph % (Auto) (20-40) % Wright % (Auto) (2-11) % Eos % (Auto) (0-4) % Baso % (Auto) (0-2) % Lymph # (Auto) (1.2-4.9) X10*3/uL Wright # (Auto) (0.1-1.2) X10*3/uL Eos # (Auto) (0.0-0.4) X10*3/uL Baso # (Auto) (0.0-0.2) X10*3/uL Abs Immat Gran (auto) (0.00-0.03) X10*3/uL Absolute Neuts (auto) (2.0-8.3) x10*3/uL Absolute Nucleated RBC (0.0-0.012) X10*3/uL Nucleated RBC % (auto) (0.0-0.2) /100WBC Sodium (135-145) mmol/L Potassium (3.3-5.1) mmol/L Chloride (96-108) mmol/L Carbon Dioxide (22-29) mmol/L Anion Gap (12-20) BUN (9-16) mg/dL Creatinine (0.5-1.4) mg/dL Estim Creat Clear Calc Estimated GFR Random Glucose (60-115) mg/dL Calcium (8.4-10.2) mg/dL Total Bilirubin (0.0-1.0) mg/dL Direct Bilirubin (0.0-0.5) mg/dL AST (5-31) U/L ALT (0-31) U/L Alkaline Phosphatase (39-117) U/L Total Protein (6.5-8.0) g/dL Albumin (3.5-5.0) g/dL Beta HCG, Quant 24453 mIU/mL Urine Color Yellow Urine Appearance Clear Urine pH 6.5 (5.0-9.0) Ur Specific [place] 1.010 (1.005-1.025) Urine Protein Negative (Neg-Trace) mg/dL Urine Glucose (UA) Negative (Negative) mg/dL Urine Ketones Negative (Negative) mg/dL Urine Blood Moderate (2+) H (Negative) Urine Nitrite Negative (Negative) Ur Leukocyte Esterase Negative (Negative) Urine RBC >20 H (0-2) /HPF Urine WBC 0-5 (0-5) /HPF Ur Squamous Epith Cells 0-2 (0-2) /HPF Urine Bacteria None Seen (None Seen) Hyaline Casts 0-2 (0-2) /LPF Urine Test POSITIVE H (NEGATIVE) Blood Type Radiology Impression Discussion of test interpretation with radiology: I have reviewed the radiologist's reading. External Record Review External record reviewed: Inpatient record, Office record, Outpatient record, Prior outpatient labs, Prior outpatient radiology, Primary care record and Outside ED record Discharge Plan Discharge Clinical Impression: Vaginal bleeding Patient Disposition: Home, Self-Care Instructions: Miscarriage (ED) Additional Instructions: It was determined by your OBGYN that your miscarrying. Their recommendations are to follow up with the D&C scheduled tomorrow. Please go to this appointment. Please take medication as prescribed. Please be aware that oxycodone-acetaminophen can cause drowsiness, do not drink alcohol or drive while taking this. Only take for SEVERE pain. Drink plenty of fluids get plenty of rest. If any new or worsening symptoms occur including but not limited to worsening pain, vaginal bleeding, loss of consciousness, please return to the emergency department for re-evaluation. Prescriptions: New ondansetron 4 mg tablet,disintegrating 4 mg PO Q6H PRN (Reason: nausea and vomiting) Qty: 3 0RF oxycodone-acetaminophen 5-325 mg tablet 1 tab PO Q8H PRN (Reason: pain) Qty: 2 0RF Rx Instructions: Partial Fill upon patient request. No Action nitrofurantoin monohyd/m-cryst [Macrobid] 100 mg capsule 100 mg PO BID Qty: 14 0RF Rx Instructions: must administer with a meal/food oseltamivir 75 mg capsule 75 mg PO BID 5 Days Qty: 10 0RF albuterol sulfate 90 mcg/actuation HFA aerosol inhaler 2 puff inhalation Q4-6H PRN (Reason: shortness of breath or wheezing) Qty: 6.7 0RF Interventions: ED Discharge Assessment Last Done: 03/01/23 19:52 Discharge Date/Time: 03/01/23 19:53
[2023-03-01 16:16] VITALS: BP 115/72; PULSE 77; RESP 18; TEMP 36.7; O2SAT 98
[2023-03-01 16:47] LABS: MANUAL DIFF FLAG NO
[2023-03-01 16:51] LABS: Appearance Urine Clear; Basophils Absolute Auto 0.1 X10*3/uL (0.0-0.2); Basophils Percent Auto 0.9 % (0-2); Color Urine Yellow; Eosinophils Absolute Auto 0.3 X10*3/uL (0.0-0.4); Eosinophils Percent Auto 1.9 % (0-4); Glucose Urine UA Negative (Negative); Hematocrit 35.7 % (37.0-47.0); Hemoglobin 12.1 g/dl (12.0-16.0); Imm Gran Abs Auto 0.05 X10*3/uL (0.00-0.03); Imm Gran Pct Auto 0.4 % (0.0-0.4); Leukocyte Esterase Urine Negative (Negative); Lymphocytes Absolute Auto 3.7 X10*3/uL (1.2-4.9); Lymphocytes Percent Auto 26.4 % (20-40); Mean Corpuscular HGB Conc 33.9 g/dl (31.0-35.0); Mean Corpuscular Hemoglobin 30.2 pg (27.0-33.0); Mean Platelet Volume 9.7 fL (9.4-12.3); Monocytes Absolute Auto 0.8 X10*3/uL (0.1-1.2); Monocytes Percent Auto 5.8 % (2-11); Neutrophils Percent Auto 64.6 % (45-73); Nitrite Urine Negative (Negative); PH 6.5 (5.0-9.0); Platelet Count 292 X10*3/uL (160-400); Red Blood Count 4.01 X10*6/uL (4.20-5.50); Red Cell Distribution Width 13.2 % (11.0-16.0); UMIC TRIGGER UACC YES; Urine Blood Moderate (2+) (Negative); Urine Ketones Negative (Negative); Urine Protein Negative (Neg-Trace); White Blood Count 13.9 X10*3/uL (4.8-10.8)
[2023-03-01 16:53] LABS: Bacteria Urine None Seen (None Seen); Hyaline Casts Urine 0-2 /LPF (0-2); RBC Urine >20 /HPF (0-2); Squamous Epithelial Cell Urine 0-2 /HPF (0-2); WBC Urine 0-5 /HPF (0-5)
[2023-03-01 16:54] LABS: Urine Pregnancy POSITIVE (NEGATIVE)
[2023-03-01 16:55] LABS: UPreg QC Valid YES
[2023-03-01 17:05] LABS: Alanine Aminotransferase 8 U/L (0-31); Albumin Level 4.1 g/dL (3.5-5.0); Alkaline Phosphatase 84 U/L (39-117); Anion Gap 13 (12-20); Aspartate Amino Transferase 13 U/L (5-31); Bilirubin Direct 0.1 mg/dL (0.0-0.5); Bilirubin Total 0.3 mg/dL (0.0-1.0); Blood Urea Nitrogen 6 mg/dL (9-16); Carbon Dioxide 21 mmol/L (22-29); Chloride 106 mmol/L (96-108); Creatinine Clr Calc Pharmacy 87.2; Estimated Glomerular Filt Rate > 60; Glucose Random 112 mg/dL (60-115); Potassium 3.4 mmol/L (3.3-5.1); Sodium 137 mmol/L (135-145); Total Protein 6.7 g/dL (6.5-8.0)
[2023-03-01 17:11] LABS: HCG Quantitative 13549 mIU/mL
[2023-03-01] MEDS: Morphine Sulfate 4 MG/ML CARTRIDGE IVPUSH (17:46)
[2023-03-01] MEDS: 0.9 % Sodium Chloride 1,000 ML 999 ML IV (17:47)
[2023-03-01 19:35] VITALS: BP 112/73; PULSE 81; RESP 16; TEMP 36.7; O2SAT 100
[2023-03-01] MEDS: ondansetron HCL 4 MG/2 ML VIAL IVPUSH (19:39)
== END 2023-03-01 19:53 | disposition home or self-care (01) ==
PROVIDERS: Nurse Practitioner Family; Emergency Provider Emergency Medicine Emergency Medical Services
DX: O20.9 Hemorrhage in early pregnancy, unspecified (principal); Z3A.12 12 weeks gestation of pregnancy; Z79.899 Other long term (current) drug therapy
CPT/HCPCS: 36415; 80048; 80076; 81001; 81025; 84702; 85025; 86900; 86901; 96361; 96374; 96375; 99284; J2270; J2405

== ENCOUNTER 2024-04-09 11:24 | Outpatient (REF) | payer MEDICAID, SELFPAY ==
[2024-04-09 13:21] LABS: MANUAL DIFF FLAG NO
[2024-04-09 13:32] LABS: Basophils Absolute Auto 0.1 X10*3/uL (0.0-0.2); Eosinophils Absolute Auto 0.2 X10*3/uL (0.0-0.4); Eosinophils Percent Auto 1.8 % (0-4); Hematocrit 39.6 % (37.0-47.0); Hemoglobin 12.7 g/dl (12.0-16.0); Imm Gran Abs Auto 0.04 X10*3/uL (0.00-0.03); Imm Gran Pct Auto 0.4 % (0.0-0.4); Lymphocytes Absolute Auto 2.6 X10*3/uL (1.2-4.9); Lymphocytes Percent Auto 26.1 % (20-40); Mean Corpuscular HGB Conc 32.1 g/dl (31.0-35.0); Mean Corpuscular Hemoglobin 29.6 pg (27.0-33.0); Mean Corpuscular Volume 92.3 fL (80.0-98.0); Mean Platelet Volume 10.1 fL (9.4-12.3); Monocytes Absolute Auto 0.8 X10*3/uL (0.1-1.2); Monocytes Percent Auto 7.7 % (2-11); Neutrophils Absolute Auto 6.2 x10*3/uL (2.0-8.3); Platelet Count 292 X10*3/uL (160-400); Red Blood Count 4.29 X10*6/uL (4.20-5.50); Red Cell Distribution Width 13.7 % (11.0-16.0); White Blood Count 9.9 X10*3/uL (4.8-10.8)
[2024-04-09 13:44] LABS: Estimated Average Glucose 103 mg/dL; Hemoglobin A1c % 5.2 % (<6.0)
[2024-04-09 14:05] LABS: Alanine Aminotransferase 13 U/L (0-31); Albumin Level 4.4 g/dL (3.5-5.0); Alkaline Phosphatase 82 U/L (39-117); Anion Gap 10 (12-20); Aspartate Amino Transferase 15 U/L (5-31); Bilirubin Total 0.3 mg/dL (0.0-1.0); Blood Urea Nitrogen 11 mg/dL (9-16); C Reactive Protein < 0.10 mg/dL (< or = 0.50); Calcium 9.7 mg/dL (8.4-10.2); Carbon Dioxide 27 mmol/L (22-29); Chloride 105 mmol/L (96-108); Estimated Glomerular Filt Rate > 60; Glucose Random 93 mg/dL (60-115); Potassium 4.4 mmol/L (3.3-5.1); Sodium 138 mmol/L (135-145); Total Protein 6.9 g/dL (6.5-8.0)
[2024-04-09 14:06] LABS: Erythrocyte Sedimentation Rate 4 MM/HR (0-20)
[2024-04-09 14:09] LABS: TSH reflex Free T4 1.08 uIU/mL (0.32-4.0)
[2024-04-09 14:20] LABS: Vitamin B12 302 pg/mL (200-900)
[2024-04-10 05:14] LABS: HIV AB/AG Nonreactive (Nonreactive); HIV Num 1 0.09 S/CO (0.00-0.99)
[2024-04-10 14:18] LABS: HCV Log PCR <1.18 NOT DETECTED Log IU/mL (NOT DETECTED); HepC Viral Load <15 NOT DETECTED IU/mL (NOT DETECTED)
== END 2024-04-09 11:25 | disposition home or self-care (01) ==
LOC: HO.HHCL 11:24
PROVIDERS: Visit Provider Internal Medicine
DX: R63.4 Abnormal weight loss (principal); N39.0 Urinary tract infection, site not specified
CPT/HCPCS: 36415; 80053; 82607; 82746; 83036; 84443; 85025; 85652; 86140; 87086; 87389; 87522

== ENCOUNTER 2024-05-09 16:51 | Outpatient (REF) | payer MEDICAID, SELFPAY ==
[2024-05-10 14:35] LABS: H Pylori Breath Test Negative (Negative)
== END 2024-05-09 16:52 | disposition home or self-care (01) ==
LOC: HO.HHCLNP 16:51
PROVIDERS: Visit Provider Family Medicine
DX: R10.13 Epigastric pain (principal)
CPT/HCPCS: 83013

== ENCOUNTER 2024-05-21 09:36 | Emergency (ER) | payer MEDICAID, SELFPAY ==
--- NOTE | ~2024-05-21 | CT_ITS ---
EXAMINATION: CT chest, abdomen and pelvis. CLINICAL INFORMATION: Abnormal 30 pound weight loss. COMPARISON: CT scan of abdomen and pelvis on 06/29/2019 TECHNIQUE: A multidetector helical CT acquisition of the chest, abdomen and pelvis was obtained without the administration of intravenous contrast. Multiplanar reformats were acquired and utilized for image interpretation. Coronal and sagittal images were reconstructed from axial image data. This CT examination was performed using dose optimization techniques as appropriate, variously including the following: *Automated exposure control *Adjustment of mA and/or kV according to patient size (this includes techniques or standardized protocols for targeted exams where dose is matched to indication/reason for exam; i.e. extremities or head) *Use of iterative reconstruction technique DLP: 298 mGy-cm FINDINGS: LUNGS: The visualized lung parenchyma is clear. PLEURA: No pleural effusion or pneumothorax is seen. PERICARDIUM: No pericardial effusion is seen. MEDIASTINUM AND LYNNETTE: Inadequate evaluation of the mediastinal and hilar lymph nodes due to absence of IV contrast filling the surrounding blood vessels. TRACHEOBRONCHIAL TREE: Trachea and bilateral mainstem bronchi are patent. THORACIC AORTA: The thoracic aorta is normal in size and smooth in outline. CORONARY ARTERY CALCIFICATIONS: Absent PULMONARY ARTERIES: The main pulmonary arteries appear to be normal in size. CHEST WALL AND LOWER NECK: The subcutaneous and muscular chest wall are intact with no focal lesion. No abnormal mass lesion could be seen in the visualized lower neck. BONES: No fracture or dislocation. No focal bone lesion diagnostic of metastatic disease could be seen in the thorax. VISUALIZED UPPER ABDOMEN: Bilateral adrenal glands are not enlarged. Fleischner guidelines were followed. EXAMINATION: CT abdomen and pelvis without IV contrast. FINDINGS: CT ABDOMEN LUNG BASES: Bilateral lung bases are clear. LIVER: Liver appears to be grossly normal on noncontrast enhanced images. GALLBLADDER AND BILIARY TREE: Gallbladder appears unremarkable without calcified stones. Common bile duct is not dilated. SPLEEN: The spleen is normal in size without focal lesion on noncontrast enhanced images. PANCREAS: The pancreas appears unremarkable on noncontrast enhanced images. ADRENAL GLANDS: Adrenal glands are normal in size without focal lesion bilaterally. KIDNEYS: The visualized bilateral kidneys are normal in size without stones. No caliectasis or dilated pelvis is seen. No dilated ureters are found. BOWELS: There is diffuse fecal retention in the colon. RETROPERITONEUM: No abnormally enlarged retroperitoneal lymph nodes, mass or hematoma could be seen. BLOOD VESSELS: Abdominal aorta is normal in size and smooth in outline. ABDOMINAL WALL: Small umbilical hernia containing mesenteric fat is seen. PERITONEUM: There is no ascites. There were no abdominal peritoneal inflammatory changes seen. No free peritoneal air was seen. BONES: Mild L4-L5 posterior disc protrusion is present. No fracture or dislocation. No focal bone lesion diagnostic of metastatic disease could be seen in the lumbar region. CT PELVIS URINARY BLADDER: The visualized urinary bladder is normal, filled with urine. No intraluminal stones are found. No abnormally dilated distal ureters are seen. BOWELS: There is no abnormal dilatation of the large and small bowel loops. Normal air-filled appendix is seen projecting posterior and medial to the cecum.. GENITAL ORGANS: No adnexal mass lesion could be seen. The uterus is unremarkable. LYMPH NODES: No abnormally enlarged iliac or inguinal lymph nodes are seen. PERITONEUM: No inflammatory changes, ascites or free peritoneal air are found in the pelvis. BONES: No fracture or dislocation. No focal bone lesion diagnostic of metastatic disease could be seen in the pelvis. CT/CT abdomen pelvis wo IV con IMPRESSION: 1. No evidence of malignancy in the chest, abdomen and pelvis. 2. Small umbilical hernia containing mesenteric fat. 3. Mild L4-L5 posterior disc protrusion. Electronically signed by: Lisbet Stahl MD 05/21/2024 01:24 PM EDT
--- NOTE | ~2024-05-21 | XR_ITS ---
EXAMINATION: XR HUMERUS, RIGHT CLINICAL INFORMATION: Abnormal focus in the humerus. COMPARISON: Chest radiograph dated 05/21/2024 TECHNIQUE: AP and lateral views of the right humerus. FINDINGS: The bones and soft tissues are normal in appearance no aggressive osseous lesions are identified. No fracture. Imaged portions of the shoulder and elbow are unremarkable. The sclerotic focus seen over the right humerus on the chest radiograph likely corresponds to an overlying structure. XR/XR humerus RT IMPRESSION: Normal right humeral radiographs. No aggressive osseous lesions are identified. Electronically signed by: Solis Cat MD 05/21/2024 03:50 PM EDT
--- NOTE | ~2024-05-21 | XR_ITS ---
EXAMINATION: XR CHEST CLINICAL INFORMATION: Lower chest pain, abdomen pain 1 year COMPARISON: X-ray 09/03/2015 TECHNIQUE: Frontal view of the chest was obtained. FINDINGS: The cardiomediastinal silhouette is within normal limits. The lungs are well expanded. There is no focal consolidation, edema, or effusion. No pneumothorax. No acute osseous abnormality. 6 mm rounded density projected over the proximal right humeral metadiaphysis. Question 7 mm sclerotic focus in the medial aspect of the right humeral neck. XR/XR chest 1V IMPRESSION: No evidence of acute cardiopulmonary findings. Question small sclerotic foci in the proximal right humerus as detailed above. Clinically correlate. Further evaluation with dedicated humerus radiographs as clinically warranted. Electronically signed by: Sinan Post MD 05/21/2024 11:52 AM EDT
[2024-05-21 09:39] VITALS: BP 62/32; PULSE 78; RESP 16; TEMP 36.5; O2SAT 100; BMI 16.0
[2024-05-21 09:51] VITALS: BP 113/67; PULSE 77; RESP 16
[2024-05-21 09:59] LABS: MANUAL DIFF FLAG NO
[2024-05-21 10:03] LABS: Basophils Absolute Auto 0.1 X10*3/uL (0.0-0.2); Basophils Percent Auto 1.4 % (0-2); Eosinophils Absolute Auto 0.2 X10*3/uL (0.0-0.4); Hematocrit 38.3 % (37.0-47.0); Hemoglobin 12.6 g/dl (12.0-16.0); Imm Gran Abs Auto 0.02 X10*3/uL (0.00-0.03); Imm Gran Pct Auto 0.2 % (0.0-0.4); Lymphocytes Absolute Auto 2.5 X10*3/uL (1.2-4.9); Lymphocytes Percent Auto 26.3 % (20-40); Mean Corpuscular HGB Conc 32.9 g/dl (31.0-35.0); Mean Corpuscular Volume 91.2 fL (80.0-98.0); Mean Platelet Volume 9.8 fL (9.4-12.3); Monocytes Absolute Auto 0.7 X10*3/uL (0.1-1.2); Monocytes Percent Auto 7.5 % (2-11); Neutrophils Percent Auto 62.6 % (45-73); Platelet Count 234 X10*3/uL (160-400); Red Cell Distribution Width 13.8 % (11.0-16.0); White Blood Count 9.5 X10*3/uL (4.8-10.8)
--- NOTE | 2024-05-21 10:10 | ED.GENADULT ---
HPI - General Adult General Chief complaint: Abdominal Pain Stated complaint: abd-back pain-vomiting Time Seen by Provider: 05/21/24 09:46 Source: patient Mode of arrival: ambulatory Limitations: no limitations History of Present Illness ED Provider: Daphney DURHAM narrative: 34 year old famel hx of fatigue, ptsd, depression, fibromyalgia, bipolar, anxiety, underweight, panic d/o w/ agoraphobia and panic attacks in full remission, dysphagia, presents w/ abdominal pain and back pain X 1 year today pain was worse and she vomited dark blood and her PCP advised her to come in to be evaluated. Patient reports 22 lb weight loss in the past 6 months and every morning she has vomited for the past year. Patient reports she only eats 1 meal a day. Patient has tried to see GI w/ no luck. Patient on pantoprazol, sucrulfate, and zofran w/ little to no relief. Recently she feels like her breath smells like poop . No cp, sob, headache, vision change, fevers, chills, sick contacts. Smokes cigarettes and marijuana daily. Test tried supplementing with ensure however unable to tolerate it. Related Data Home Medications ?Medication ?Instructions ?Recorded ?Confirmed quetiapine 25 mg tablet (Seroquel) 25 mg PO BEDTIME 01/11/21 Previous Rx's ?Medication ?Instructions ?Recorded nitrofurantoin 100 mg PO BID #14 caps 07/01/21 monohydrate/macrocrystals 100 mg capsule (Macrobid) albuterol sulfate 90 mcg/actuation 2 puff inhalation Q4-6H PRN 01/31/22 aerosol inhaler shortness of breath or wheezing #6.7 grams oseltamivir 75 mg capsule 75 mg PO BID 5 days #10 caps 01/31/22 ondansetron 4 mg disintegrating 4 mg PO Q6H PRN nausea and 03/01/23 tablet vomiting #3 tabs oxycodone-acetaminophen 5 mg-325 1 tab PO Q8H PRN pain #2 tabs 03/01/23 mg tablet Allergies Allergy/AdvReac Type Severity Reaction Status Date / Time Iodinated Contrast Media Allergy Severe ANAPHYLAXIS Verified 05/21/24 09:42 [IVP DYE] shellfish derived Allergy Severe ANAPHYLAXIS Verified 05/21/24 09:42 [SHELLFISH DERIVED] shrimp [SHRIMP] Allergy Severe ANAPHYLAXIS Verified 05/21/24 09:42 IV contrast Allergy Unknown swelling, Uncoded 05/21/24 09:42 rash, SOB IV contrast Dy Allergy Unknown hives, Uncoded 05/21/24 09:42 shortness of breath Review of Systems Review of Systems: Yes all other systems are reviewed and are negative [facility] Past Medical History Attestation statement: The following information was validated with the patient. Source: old records reviewed and nursing notes reviewed Medical History 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 Chronic post-traumatic stress disorder (PTSD) Bipolar disorder Microscopic hematuria Anxiety Depression Underweight Lumbar sprain Fibromyalgia Chronic fatigue Dysphagia Cervical lymphadenopathy Surgical History History of surgery Social History Social History Alcohol intake: never Advance Directives: No Do you have a plan to hurt others: No Plan Patient : No Physical Exam ED Vital Signs: Vital Signs - 24 hr 05/21/24 09:39 05/21/24 09:51 05/21/24 14:55 Temperature 97.7 F 98.3 F Pulse Rate 78 77 75 Respiratory Rate 16 16 16 Blood Pressure 62/32 L 113/67 102/55 L Pulse Oximetry 100 99 Oxygen Delivery Method Room Air Room Air BMI result Body Mass Index 16.0 vss Appearance: Alert.? Oriented X3.? No acute distress.?+ patient appears cachectic Head: Normocephalic, atraumatic, no step-offs or deformities Eyes: Pupils equal, round and reactive to light.? ENT: Pharynx normal.? Neck: Normal inspection.? Neck supple.? CVS: Normal heart rate and rhythm.? Pulses normal.? Respiratory: No respiratory distress.? Breath sounds normal.? Abdomen: Soft and + LUQ pain .? Skin: Skin warm and dry.? Normal skin color.? Normal skin turgor.? Extremities: No lower extremity edema.? No calf ttp. 5/5 strength to bilateral upper and lower extremities Neuro: Oriented X 3.? No motor deficit.? No sensory deficit. CN 2-12 intact Course Reevaluation(s) Reevaluation #1: CBC unremarkable. Chemistry no acute findings needing intervention. Negative beta hCG. Normal lipase. UA without infection. Abdomen pelvis CT with no evidence of malignancy in the chest, abdomen or pelvis small umbilical hernia containing fat. Mild L4-L5 posterior disc protrusion. X-ray of the chest no evidence of acute cardiopulmonary findings question small sclerotic foci in the proximal right humerus, detailed radiograph of the right humerus ordered and pending. Patient will be seen by care team possible anorexia/bulimia. Time: 14:50 Reevaluation #2: Discussed case w/ my attending no further recommendations. Time: 15:16 Reevaluation #3: Patient eating soup family brought her Time: 15:22 Additional Reevaluation(s): Patient feeling much better. Patient will be evaluated by the care team for anxiety, depression and possible eating disorder. Will have her follow-up with GI and PCP. If care team evaluation is normal patient to be discharged home with GI follow-up. At this time patient will be placed into physician observation to allow more time to be evaluated by behavioral health team. At time observation was started patient common cooperative no acute distress will continue to monitor Consultations Consultation #1: Care team assessed the patient, she is cleared for discharge. Time: 18:01 Medications Administered Discontinued Medications Generic Name Dose Route Start Last Admin Trade Name Freq PRN Reason Stop Dose Admin Sodium Chloride 1,000 mls @ 999 mls/hr 05/21/24 15:00 05/21/24 15:45 Ns IV 05/21/24 16:00 Infused .Q1H1M MIRIAM Infusion Medical Decision Making Medical Decision Making [facility] Narrative: 34-year-old female presents with multiple complaints nausea, vomiting, abdominal pain, weight loss ongoing for about a year worsening acutely over the past few days. Physical exam left upper quadrant tenderness and patient appears cachectic. Patient's BMI is 16. History and physical exam concerning for cyclical vomiting versus viral illness versus H pylori versus anemia versus anorexia. Will rule out metabolic derangements and intra-abdominal etiologies. Less likely pancreatitis, cholecystitis, appendicitis, diverticulitis, obstruction, acute abdomen. Plan Differential Diagnosis Differential Diagnoses: The differential diagnosis associated with the presentation includes History and physical exam concerning for cyclical vomiting versus viral illness versus H pylori versus anemia versus anorexia. Will rule out metabolic derangements and intra-abdominal etiologies. Less likely pancreatitis, cholecystitis, appendicitis, diverticulitis, obstruction, acute abdomen. Admission/Observation Consideration of admission/observation: Escalation of care including admission/observation considered possible Consult Healthcare Provider Management of the patient was discussed with: Database Security Expert (attending Dr. Champion) Lab Data MDM Lab Attestation statement: I reviewed the patient's lab results. 05/21/24 09:55 05/21/24 09:55 Labs: Lab Results 05/21/24 05/21/24 Range/Units 09:55 11:12 WBC 9.5 (4.8-10.8) X10*3/uL RBC 4.20 (4.20-5.50) X10*6/uL Hgb 12.6 (12.0-16.0) g/dl Hct 38.3 (37.0-47.0) % MCV 91.2 (80.0-98.0) fL MCH 30.0 (27.0-33.0) pg MCHC 32.9 (31.0-35.0) g/dl RDW 13.8 (11.0-16.0) % Plt Count 234 (160-400) X10*3/uL MPV 9.8 (9.4-12.3) fL Immature Gran % (Auto) 0.2 (0.0-0.4) % Neut % (Auto) 62.6 (45-73) % Lymph % (Auto) 26.3 (20-40) % [place] % (Auto) 7.5 (2-11) % Eos % (Auto) 2.0 (0-4) % Baso % (Auto) 1.4 (0-2) % Lymph # (Auto) 2.5 (1.2-4.9) X10*3/uL [place] # (Auto) 0.7 (0.1-1.2) X10*3/uL Eos # (Auto) 0.2 (0.0-0.4) X10*3/uL Baso # (Auto) 0.1 (0.0-0.2) X10*3/uL Abs Immat Gran (auto) 0.02 (0.00-0.03) X10*3/uL Absolute Neuts (auto) 6.0 (2.0-8.3) x10*3/uL Absolute Nucleated RBC 0.000 (0.0-0.012) X10*3/uL Nucleated RBC % (auto) 0.0 (0.0-0.2) /100WBC Sodium 139 (135-145) mmol/L Potassium 4.2 (3.3-5.1) mmol/L Chloride 106 (96-108) mmol/L Carbon Dioxide 25 (22-29) mmol/L Anion Gap 12 (12-20) BUN 11 (9-16) mg/dL Creatinine 0.60 (0.5-1.4) mg/dL Estim Creat Clear Calc 74.7 Estimated GFR > 60 Random Glucose 89 (60-115) mg/dL Calcium 9.5 (8.4-10.2) mg/dL Magnesium 2.1 (1.6-2.6) mg/dL Total Bilirubin 0.2 (0.0-1.0) mg/dL AST 18 (5-31) U/L ALT 12 (0-31) U/L Alkaline Phosphatase 74 (39-117) U/L Troponin I High Sens < 2.7 (<3.5-17.0) ng/L Total Protein 6.6 (6.5-8.0) g/dL Albumin 4.2 (3.5-5.0) g/dL Lipase 25 (8-78) U/L Beta HCG, Quant < 2 mIU/mL Urine Color Yellow Urine Appearance Clear Urine pH 7.0 (5.0-9.0) Ur Specific [place] 1.020 (1.005-1.025) Urine Protein Negative (Neg-Trace) mg/dL Urine Glucose (UA) Negative (Negative) mg/dL Urine Ketones Negative (Negative) mg/dL Urine Blood Negative (Negative) Urine Nitrite Negative (Negative) Ur Leukocyte Esterase Negative (Negative) Urine Opiates Screen Not Detected (Not Detect) Ur Buprenorphine Scrn Not Detected (Not Detect) ng/mL Ur Oxycodone Screen Not Detected (Not Detect) ng/mL Urine Methadone Screen Not Detected (Not Detect) ng/mL Urine Fentanyl Screen Not Detected (Not Detect) Ur Barbiturates Screen Not Detected (Not Detect) Ur Phencyclidine Scrn Not Detected (Not Detect) Ur Amphetamines Screen Not Detected (Not Detect) U Benzodiazepines Scrn Not Detected (Not Detect) Urine Cocaine Screen Not Detected (Not Detect) U Marijuana (THC) Screen POSITIVE H (Not Detect) Independent Interpretation I performed an independent interpretation of an: EKG (Vent. Rate : 063 BPM Atrial Rate : 063 BPM P-R Int : 116 ms QRS Dur : 078 ms QT Int : 390 ms P-R-T Axes : -28 057 063 degrees QTc Int : 399 ms Normal sinus rhythm ST elevation in Inferior leads When compared with ECG of 25-DEC-2014 11:05, Vent. rate has decreased BY 4), Plain X-Ray (XR/XR chest 1V IMPRESSION: No evidence of acute cardiopulmonary findings. Question small sclerotic foci in the proximal right humerus as detailed above. Clinically correlate. Further evaluation with dedicated humerus radiographs as clinically warranted. ) and CT Scan (CT/CT abdomen pelvis wo IV con IMPRESSION: 1. No evidence of malignancy in the chest, abdomen and pelvis. 2. Small umbilical hernia containing mesenteric fat. 3. Mild L4-L5 posterior disc protrusion.) Interpretation: 5 CT/CT chest wo IV con IMPRESSION: 1. No evidence of malignancy in the chest, abdomen and pelvis. 2. Small umbilical hernia containing mesenteric fat. 3. Mild L4-L5 posterior disc protrusion. Critical Care Time Critical Care Time Critical Care Time: No Discharge Plan Discharge Clinical Impression: Nausea & vomiting, Abdominal pain, Rapid weight loss, Diarrhea Patient Disposition: Still a Patient Additional Instructions: Take your medications as prescribed. If you were prescribed antibiotics today, it is important that you take your medication to their entirety, do not skip any doses, do not finish them early. Follow-up with your primary care provider this week. Return to the emergency department with new or worsening symptoms. Such as fevers, chills, chest pain, shortness of breath, nausea, vomiting, dizziness, headache, vision changes, lethargy In case of emergency call 911 Please follow-up with GI Prescriptions: No Action nitrofurantoin monohyd/m-cryst [Macrobid] 100 mg capsule 100 mg PO BID Qty: 14 0RF Rx Instructions: must administer with a meal/food oseltamivir 75 mg capsule 75 mg PO BID 5 Days Qty: 10 0RF albuterol sulfate 90 mcg/actuation HFA aerosol inhaler 2 puff inhalation Q4-6H PRN (Reason: shortness of breath or wheezing) Qty: 6.7 0RF ondansetron 4 mg tablet,disintegrating 4 mg PO Q6H PRN (Reason: nausea and vomiting) Qty: 3 0RF oxycodone-acetaminophen 5-325 mg tablet 1 tab PO Q8H PRN (Reason: pain) Qty: 2 0RF Rx Instructions: Partial Fill upon patient request. Referrals: [facility] [place] [facility] [Provider Group] - 1 day Print Language: Amharic
[2024-05-21 10:21] LABS: Alanine Aminotransferase 12 U/L (0-31); Albumin Level 4.2 g/dL (3.5-5.0); Alkaline Phosphatase 74 U/L (39-117); Anion Gap 12 (12-20); Aspartate Amino Transferase 18 U/L (5-31); Bilirubin Total 0.2 mg/dL (0.0-1.0); Blood Urea Nitrogen 11 mg/dL (9-16); Calcium 9.5 mg/dL (8.4-10.2); Carbon Dioxide 25 mmol/L (22-29); Chloride 106 mmol/L (96-108); Creatinine Clr Calc Pharmacy 74.7; Estimated Glomerular Filt Rate > 60; Glucose Random 89 mg/dL (60-115); HCG Quantitative < 2 mIU/mL; Lipase 25 U/L (8-78); Magnesium 2.1 mg/dL (1.6-2.6); Potassium 4.2 mmol/L (3.3-5.1); Sodium 139 mmol/L (135-145); Total Protein 6.6 g/dL (6.5-8.0)
--- NOTE | 2024-05-21 10:29 | ECG_ITS ---
Test Reason : NAUSEA, VOMITTING Blood Pressure : / mmHG Vent. Rate : 063 BPM Atrial Rate : 063 BPM P-R Int : 116 ms QRS Dur : 078 ms QT Int : 390 ms P-R-T Axes : -28 057 063 degrees QTc Int : 399 ms Normal sinus rhythm ST elevation in Inferior leads When compared with ECG of 25-DEC-2014 11:05, Vent. rate has decreased BY [address] elevation now present in Inferior leads Referred By: Jason Shelley Electronically Signed By:VANDANA MATHEW
[2024-05-21 11:21] LABS: Appearance Urine Clear; Color Urine Yellow; Glucose Urine UA Negative (Negative); Leukocyte Esterase Urine Negative (Negative); Nitrite Urine Negative (Negative); Urine Blood Negative (Negative); Urine Ketones Negative (Negative); Urine Protein Negative (Neg-Trace)
--- NOTE | 2024-05-21 11:21 | PC.NURSE ---
patient comes in through external triage with cc of epigastric pain for the last few days, patient denies nausea for this RN and states she will intermittently have episodes of diarrhea and then be constipated for a few days, patient denies tenderness to palpation throughout 4 quadrants but does endorse some tenderness to epigastric area. patient denies difficulty urinating, states there are many sick contacts at work, denies recent fevers or chills. urine sample obtained, patient ambulatory with steady gait to bathroom, lab work sent, patient received CT scan, awaiting results, plan of care remains ongoing
[2024-05-21 11:32] LABS: Amphetamine Screen Urine Not Detected (Not Detect); Barbiturates, Urine Not Detected (Not Detect); Benzodiazepines Screen Urine Not Detected (Not Detect); Buprenorphine Scr Not Detected (Not Detect); Cannabinoid Screen Urine POSITIVE (Not Detect); Cocaine Screen Urine Not Detected (Not Detect); Fentanyl, urine Not Detected (Not Detect); Methadone Screen, Urine Not Detected (Not Detect); Opiate Screen Urine Not Detected (Not Detect); Oxycodone Screen Urine Not Detected (Not Detect); Phencyclidine Screen Urine Not Detected (Not Detect)
[2024-05-21 14:55] VITALS: BP 102/55; PULSE 75; RESP 16; TEMP 36.8; O2SAT 99
[2024-05-21] MEDS: 0.9 % Sodium Chloride 1,000 ML 999 ML IV (14:58)
[2024-05-21 15:19] LABS: Troponin-I High Sensitivity < 2.7 ng/L (<3.5-17.0)
--- NOTE | 2024-05-21 15:45 | PC.NURSE ---
patient fluids completed at this time, states she ate some soup from home and has been able to keep it down, ambulatory to bathroom with steady gait, endorsing feeling better at this time
[2024-05-21 18:11] VITALS: BP 110/72; PULSE 74; RESP 16; TEMP 36.8; O2SAT 98
== END 2024-05-21 18:19 | disposition still patient (30) ==
PROVIDERS: Physician Assistant; Emergency Provider Emergency Medicine; PCP Family Medicine
DX: R10.9 Unspecified abdominal pain (principal); R11.2 Nausea with vomiting, unspecified; R19.7 Diarrhea, unspecified; R63.4 Abnormal weight loss; Z68.1 Body mass index [BMI] 19.9 or less, adult; M54.9 Dorsalgia, unspecified; R13.10 Dysphagia, unspecified
CPT/HCPCS: 36415; 71045; 71250; 73060; 74176; 80053; 80307; 81003; 83690; 83735; 84484; 84702; 85025; 93005; 96360; 99284; 99285; S9485

== ENCOUNTER 2025-01-12 11:37 | Emergency (ER) | payer OTHER, SELFPAY ==
--- NOTE | ~2025-01-12 | XR_ITS ---
CLINICAL HISTORY: Left elbow pain 3 views left elbow Comparison: None Findings: No fractures or dislocations. No joint effusion. No significant arthritic change. No radiopaque foreign body. Impression: 1. Normal left elbow This document has been electronically signed by: Daniel Valenzuela MD on 01/12/2025 18:29:12
--- NOTE | ~2025-01-12 | XR_ITS ---
EXAMINATION: XR SHOULDER, LEFT CLINICAL INFORMATION: pain COMPARISON: None available. TECHNIQUE: AP external rotation, Grashey, scapular Y, and axillary views of the left shoulder. FINDINGS: Normal bone mineralization. No fracture, dislocation, or suspicious bone lesion. Normal alignment. The glenohumeral joint is normal. The AC joint is normal. There is a neutral lateral acromion. No undersurface spurring. The subacromial space is preserved. Remainder of the soft tissue and bony structures appear normal. XR/XR shoulder LT min 2V IMPRESSION: Normal left shoulder. Electronically signed by: Solis Sterling MD 01/12/2025 12:29 PM EDT
--- NOTE | 2025-01-12 11:42 | ED_ITS ---
HPI - General Adult General Chief complaint: Extremity Injury, Upper Stated complaint: Arm numbness/pain Time Seen by Provider: 01/12/25 17:52 Source: patient Mode of arrival: ambulatory Limitations: no limitations History of Present Illness ED Provider: DR. Rankin HPI narrative: 34-year-old female came in for evaluation of left arm/shoulder pain since this morning, started in the left side of the neck radiating down to the left shoulder and going to the left elbow. Patient declined any strenuous activity, no heavy lifting. Related Data Home Medications ?Medication ?Instructions ?Recorded ?Confirmed quetiapine 25 mg tablet (Seroquel) 25 mg PO BEDTIME 01/11/21 Previous Rx's ?Medication ?Instructions ?Recorded nitrofurantoin 100 mg PO BID #14 caps 07/01/21 monohydrate/macrocrystals 100 mg capsule (Macrobid) albuterol sulfate 90 mcg/actuation 2 puff inhalation Q4-6H PRN 01/31/22 aerosol inhaler shortness of breath or wheezing #6.7 grams oseltamivir 75 mg capsule 75 mg PO BID 5 days #10 caps 01/31/22 ondansetron 4 mg disintegrating 4 mg PO Q6H PRN nausea and 03/01/23 tablet vomiting #3 tabs oxycodone-acetaminophen 5 mg-325 1 tab PO Q8H PRN pain #2 tabs 03/01/23 mg tablet Allergies Allergy/AdvReac Type Severity Reaction Status Date / Time Iodinated Contrast Media Allergy Severe ANAPHYLAXIS Verified 01/12/25 11:55 [IVP DYE] shellfish derived Allergy Severe ANAPHYLAXIS Verified 01/12/25 11:55 [SHELLFISH DERIVED] shrimp [SHRIMP] Allergy Severe ANAPHYLAXIS Verified 01/12/25 11:55 IV contrast Allergy Unknown swelling, Uncoded 05/21/24 09:42 rash, SOB IV contrast Dy Allergy Unknown hives, Uncoded 05/21/24 09:42 shortness of breath Review of Systems Review of Systems: All other systems are reviewed and are negative Constitutional: Reports as per HPI and Reports no additional constitutional complaints Eyes: Reports as per HPI and Reports no additional eye complaints Reports system reviewed and no additional complaints, except as documented Cardiovascular: Reports as per HPI and Reports no additional cardiovascular complaints Respiratory: Reports as per HPI and Reports no additional respiratory complaints Gastrointestinal: Reports as per HPI and Reports no additional gastrointestinal complaints Genitourinary: Reports no additional female genitourinary complaints Musculoskeletal: Reports no additional musculoskeletal complaints Skin/Breast: Reports system reviewed and no additional complaints, except as docu Psychiatric: Reports no additional psychiatric complaints Endocrine: Reports no additional endocrine complaints Hematologic/Lymphatic: Reports no additional hematologic/lymphatic complaints Allergic/Immunologic: Reports no additional allergic/immunologic complaints Reports system reviewed and no additional complaints, except as documented and Reports Abnormal speech present [facility] Past Medical History Medical History 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 Chronic post-traumatic stress disorder (PTSD) Bipolar disorder Microscopic hematuria Anxiety Depression Underweight Lumbar sprain Fibromyalgia Chronic fatigue Dysphagia Cervical lymphadenopathy Surgical History History of surgery Social History Social History Alcohol intake: never Advance Directives: No Advance Directives Information Provided: No Do you have a plan to hurt others: No Plan Physical Exam ED Vital Signs: Vital Signs - 24 hr 01/12/25 11:54 01/12/25 17:38 Temperature 98.1 F 98.2 F Pulse Rate 93 75 Respiratory Rate 18 18 Blood Pressure 120/80 104/60 Pulse Oximetry 98 99 Oxygen Delivery Method Room Air Room Air BMI result Body Mass Index 15.9 Vital signs have been reviewed and appear to be correct. Blood pressure elevated. Heart rate normal. Respiratory rate normal. Temperature normal. Oxygen saturation normal. Appearance: Alert. Oriented X3. No acute distress. Head: Normal external exam. Normocephalic. Atraumatic. No Vallejo signs noted. No raccoon eyes noted Eyes: PERRLA. EOMI. Conjunctiva and sclera normal. Eyelids normal. ENT: TM's Normal. Pharynx normal. Uvula midline. Moist mucous membranes. No trismus noted. No drooling noted. No muffled voice noted. Neck: Normal inspection. Neck supple. FROM. No adenopathy. Thyroid Normal. No meningeal signs. No neck mass noted. CVS: Normal heart rate and rhythm. Heart sound normal. No murmurs noted. Pulses normal throughout. Respiratory: No respiratory distress. Painless inspiration. Breath sounds normal. No wheezes/rales/rhonchi noted. Chest nontender. No accessory muscle usage noted or decreased air movement noted. Abdomen: Soft and nontender. Bowel sounds normal in all 4 quadrants. No distention noted. No organomegaly noted. No visible injury noted. Back: No CVA tenderness. Full range of motion noted. Skin: Skin warm and dry. Normal skin color. Normal skin turgor. No rashes/lesions/lacerations noted. Extremities: Left shoulder/left elbow: Full range of motion, no step-off, no deformity, neurovascularly intact, tenderness over the medial epicondyle of the elbow, no redness, no hotness. Neuro: Oriented X 3. Cranial nerve exam: II-XII are grossly intact No motor deficit. No sensory deficit. Reflexes normal. Course Course Course Narrative: RME, this is a rapid medical exam performed by Jonas Sheikh please refer to primary provider for complete H&P- 34 year old female presents for evaluation of left arm pain and numbness. She does complain of left sided neck pain and shoulder pain. Good strength on exam. She reports numbness but gross sensation intact. Plan for x-ray of left shoulder Reevaluation(s) Reevaluation #1: Neurovascular exam is intact to the left shoulder and left elbow, no radiographic abnormality, no risk for acute injury. Time: 18:55 Medical Decision Making Differential Diagnosis Differential Diagnoses: The differential diagnosis associated with the present ation includes (Left cervical radiculopathy, left shoulder dislocation, left shoulder fracture, left elbow fracture,) Admission/Observation Consideration of admission/observation: Escalation of care including admission/observation considered Independent Interpretation I performed an independent interpretation of an: Plain X-Ray (Left shoulder/left elbow: No acute pathology.) Radiology Impression Discussion of test interpretation with radiology: I have reviewed the radiologist's reading. Discharge Plan Discharge Clinical Impression: Sprain of elbow, left, Epicondylitis elbow, medial Patient Disposition: Home, Self-Care Instructions: Tennis Elbow (ED), Elbow Sprain (ED) Prescriptions: No Action nitrofurantoin monohyd/m-cryst [Macrobid] 100 mg capsule 100 mg PO BID Qty: 14 0RF Rx Instructions: must administer with a meal/food oseltamivir 75 mg capsule 75 mg PO BID 5 Days Qty: 10 0RF albuterol sulfate 90 mcg/actuation HFA aerosol inhaler 2 puff inhalation Q4-6H PRN (Reason: shortness of breath or wheezing) Qty: 6.7 0RF ondansetron 4 mg tablet,disintegrating 4 mg PO Q6H PRN (Reason: nausea and vomiting) Qty: 3 0RF oxycodone-acetaminophen 5-325 mg tablet 1 tab PO Q8H PRN (Reason: pain) Qty: 2 0RF Rx Instructions: Partial Fill upon patient request. Referrals: Patria Sanders DO [Primary Care Provider] - Stand Alone Forms: Work/School Release Print Language: Nigerian
[2025-01-12 11:54] VITALS: BP 120/80; PULSE 93; RESP 18; TEMP 36.7; O2SAT 98; BMI 15.9
[2025-01-12 17:38] VITALS: BP 104/60; PULSE 75; RESP 18; TEMP 36.8; O2SAT 99
--- OUTSIDE RECORDS SUMMARY | 2025-01-12 19:15 | XMS_ITS | Encounter Summary ---
Author Organization [employer] Address [address] [place] [address] Care Team Providers Care A&P Technician Name Role Phone Patria Sanders DO Primary Care Provider + [phone] Encounter Details Date Type Department Care Team ([facility] st Contact Info) Description 01/12/2025 Orders Only [facility] External Provider, [facility] Social History Tobacco Use Types Packs/Day Years Used Date Smoking Tobacco: Every Day Cigarettes Passive Smoke Exposure: Current Smokeless Tobacco: Never Depression Answer Date Recorded Patient Health Questionnaire-9 Score 17 05/09/2024 Patient Health Questionnaire-9 Score 17 05/09/2024 Last PHQ-9: Questionnaire Data Not on file 0 05/09/2024 Housing Stability Answer Date Recorded What is your housing situation today? I have goldy julio 05/09/[address] you li ve. Do you have problems with any of the following? Lead [place] or Pipes 05/09/2024 Food Insecurity Answer Date Recorded Within the past 12 months, y ou worried that your food would run out before you got money to buy more: Often true 05/09/2024 Within the past 12 months,th e food you bought just didn't last and you didn't have enough money to get more: Often true Transportation Answer Date Recorded In the past 12 months, has l ack of transportation kept you from medical appts, meetings, work or from getting things needed for daily living? No 05/09/2024 Utilities Answer Date Recorded In the past 12 months, has t he electric, gas, oil or water company threatened to shut off services in your home? Yes 05/09/2024 Depression Answer Date Recorded Patient Health Questionnaire-2 Score 6 05/09/2024 Internet Access Answer Date Recorded Internet Access Q1 Yes 05/16/2024 Internet Access Q2 Not on file 05/16/2024 Comments Unknown Sex and Gender Information Value Date Recorded Sex Assigned at Female 07/17/2022 10:17 AM EDT Legal Sex Female 10:17 AM EDT Gender Identity Female 07/17/2022 10:17 AM EDT Sexual Orientation Straight 07/17/2022 10 :17 AM EDT documented as of this encounter Plan of Treatment Not on file documented as of this encounter Procedures Procedure Name Priority Date/Time Associated Diagnosis Comments XR ELBOW 1-2 VIEWS LEFT Routine 01/12/2025 6:29 PM EDT XR SHOULDER 2+ VIEWS LEFT Routine 01/12/2025 11:59 AM EDT documented in this encounter Results * XR Elbow 1-2 Views Left (01/12/2025 6:29 PM EDT) Anatomical Region Laterality Modality Upper Extremities, Elbow Left Radiogr aphic Imaging 01/12/2025 6:29 PM EDT Narrative 01/12/2025 6:30 PM EDT ? [facility] ?[address] ?[place] [address] ?XRay Report ? Signed ? Patient: Byrne,Aury ?MR#: [id number] ?? 68 ? : 1990 ?Acct:[id number] ? Age/Sex: 34 / F ?ADM Date: 01/12/25 ? Loc: HO.ED ? Attending Dr: ? Ordering Physician: Harmeet Rankin MD ?? Date of Service: 01/12/25 ?? Procedure(s): XR elbow LT 2V ?? Accession Number(s): [id number] ? cc: Harmeet Rankin MD; Patria Sanders DO ? CLINICAL HISTORY: Left elbow pain ? 3 views left elbow ? Comparison: None ? Findings: ?? No fractures or dislocations. No joint effusion. ?? No significant arthritic change. ?? No radiopaque foreign body. ? Impression: ?? 1. Normal left elbow ? This document has been electronically signed by: Daniel Valenzuela MD on ?? 01/12/2025 18:29:12 ? Dictated By: ?Daniel Valenzuela MD ? Signed By: ?<Electronically signed by Daniel Valenzuela MD in OV> ?01/12/25 1830 ? DD/ 1829 ? TD/TT: 01/12/251828 ? Deputy District Customs Director: ? Procedure Note Dwain, Image - 01/12/[address] [address] XRay Report Signed Patient: Monster Byrne#: [id number] 68 : 1990Acct:[id number] Age/Sex: 34 / FADM Date: 01/12/25 Loc: HO.ED Attending Dr: Ordering Physician: Harmeet Rankin MD Date of Service: 01/12/25 Procedure(s): XR elbow LT 2V Accession Number(s): [id number] cc: Harmeet Rankin MD; Patria Sanders DO CLINICAL HISTORY: Left elbow pain 3 views left elbow Comparison: None Findings: No fractures or dislocations. No joint effusion. No significant arthritic change. No radiopaque foreign body. Impression: 1. Normal left elbow This document has been electronically signed by: Daniel Valenzuela MD on 01/12/2025 18:29:12 Dictated By: Daniel Valenzuela MD Signed By: <Electronically signed by Daniel Valenzuela MD in OV> 01/12/251829 DD/ 28 TD/TT: 01/12/251828 Deputy District Customs Director: us [facility] External Provider IMG XR PROCEDURES Final Result * XR Shoulder 2+ Views Left (01/12/2025 11:59 AM EDT) Anatomical Region Laterality Modality Upper Extremities, Shoulder Left Radi ographic Imaging 01/12/2025 11:5 9 AM EDT Narrative 01/12/2025 12:31 PM EDT ? [facility] ?[address] ?[place] [address] ?XRay Report ? Signed ? Patient: Byrne,Aury ?MR#: [id number] ?? 68 ? : 1990 ?Acct:[id number] ? Age/Sex: 34 / F ?ADM Date: 01/12/25 ? Loc: HO.ED ? Attending Dr: ? Ordering Physician: Denver Sheikh ?? Date of Service: 01/12/25 ?? Procedure(s): XR shoulder LT min 2V ?? Accession Number(s): [id number] ? cc: Patria Sanders DO; Denver Sheikh ? EXAMINATION: ?? XR SHOULDER, LEFT ? CLINICAL INFORMATION: ?? pain ? COMPARISON: ?? None available. ? TECHNIQUE: ?? AP external rotation, Grashey, scapular Y, and axillary views of the ?? left shoulder. ? FINDINGS: ?? Normal bone mineralization. No fracture, dislocation, or suspicious ?? bone lesion. Normal alignment. ?? The glenohumeral joint is normal. ?? The AC joint is normal. ?? There is a neutral lateral acromion. No undersurface spurring. ?? The subacromial space is preserved. ? Remainder of the soft tissue and bony structures appear normal. ? XR/XR shoulder LT min 2V ?? IMPRESSION: ?? Normal left shoulder. ? Electronically signed by: ??Solis Sterling MD ??01/12/2025 12:29 PM EDT RP ? Dictated By: ?Solis Sterling MD ? Signed By: ?<Electronically signed by Solis Sterling MD in OV> ?01/12/25 1229 ? DD/ 1159 ? TD/TT: 01/12/25 1211 ? Deputy District Customs Director: ? Procedure Note Dwain, Image - 01/12/[address] [address] XRay Report Signed Patient: Monster Byrne#: [id number] 68 : 1990Acct:[id number] Age/Sex: 34 / FADM Date: 01/12/25 Loc: HO.ED Attending Dr: Ordering Physician: Denver Sheikh Date of Service: 01/12/25 Procedure(s): XR shoulder LT min 2V Accession Number(s): [id number] cc: Patria Sanders DO; Denver Sheikh EXAMINATION: XR SHOULDER, LEFT CLINICAL INFORMATION: pain COMPARISON: None available. TECHNIQUE: AP external rotation, Grashey, scapular Y, and axillary views of the left shoulder. FINDINGS: Normal bone mineralization. No fracture, dislocation, or suspicious bone lesion. Normal alignment. The glenohumeral joint is normal. The AC joint is normal. There is a neutral lateral acromion. No undersurface spurring. The subacromial space is preserved. Remainder of the soft tissue and bony structures appear normal. XR/XR shoulder LT min 2V IMPRESSION: Normal left shoulder. Electronically signed by: Solis Sterling MD 01/12/2025 12:29 PM EDT Dictated By: Solis Sterling MD Signed By: <Electronically signed by Solis Sterling MD in OV> 01/12/25 1229 DD/ 1159 TD/TT: 01/12/25 1211 Deputy District Customs Director: [facility] External Provider IMG XR PROCEDURES Final Result documented in this encounter Visit Diagnoses Not on filedocumented in this encounter Additional Health Concerns Assessment Noted Time PHQ-9 Depression Total Score: 17 08/2 024 9:09 AM EDT documented as of this encounter Care Teams A&P Technician Relationship Specialty Start Date End Date Patria Sanders DO [address] [place] [id number] PCP - General Family Medicine 09/17/18 documented as of this encounter
--- OUTSIDE RECORDS SUMMARY | 2025-01-12 19:15 | XMS_ITS | Clinical Summary ---
Author Organization [facility] ity Address [address] [place] [address] Care Team Providers Care Hand Washer Name Role Phone Unavailable Primary Care Provider Unavailabl e Social History Tobacco Use Types Packs/Day Years Used Date Smoking Tobacco: Never Assessed Comments Unknown Sex and Gender Information Value Date Recorded Sex Assigned at Not on file Legal Sex Female 12:25 PM EST Gender Identity Not on file Sexual Orientation Not on file Plan of Treatment Health Maintenance Due Date Last Done Comments Hepatitis B Vaccines (1 of 3 - 19+ 3-dose series) 2009 Cervical Cancer Screening: P ap Smear 2011 DTaP,Tdap,and Td Vaccines (2 - Tdap) 04/09/2022 04/09/2012 Depression Screening 08/15/2022 HIV Screening 08/15/2022 Hepatitis C Screening 08/15/2022 Social Influencers of Health Screening 08/15/2022 COVID-19 Vaccine (2023-2 5 season) 2024 Influenza Vaccine (Season Ended) 2025 HIB Vaccines Aged Out No longer eligi ble based on patient's age to complete this topic HPV Vaccines Aged Out No longer eligi ble based on patient's age to complete this topic Hepatitis A Vaccines Aged Out No long er eligible based on patient's age to complete this topic IPV Vaccines Aged Out No longer eligi ble based on patient's age to complete this topic MMR Vaccines Aged Out No longer eligi ble based on patient's age to complete this topic Meningococcal ACWY Vaccine Aged Out N o longer eligible based on patient's age to complete this topic Meningococcal B Vaccine Aged Out No l onger eligible based on patient's age to complete this topic Pneumococcal Vaccine: Pediat rics (0 to 5 Years) and At-Risk Patients (6 to 64 Years) Aged Out No longer eligi ble based on patient's age to complete this topic RSV Immunization Patients Un derik 20 months Aged Out No longer eligible b ased on patient's age to complete this topic Varicella Vaccines Aged Out No longer eligible based on patient's age to complete this topic
--- OUTSIDE RECORDS SUMMARY | 2025-01-12 19:15 | XMS_ITS | Encounter Summary ---
Author Organization [employer] Address [address] [facility] [place] [address] Care Team Providers Care Gas Plant Operator Name Role Phone Patria Sanders DO Primary Care Provider + [phone] Reason for Visit * Reason Onset Date Comments Nurse Triage 01/12/2025 Encounter Details Date Type Department Care Team ([facility] st Contact Info) Description 01/12/2025 Telephone [facility] [address] [place], [place] [phone] Patria Sanders DO [address] [place] [address] Nurse Triage Social History Tobacco Use Types Packs/Day Years [...] problems with any of the following? Lead [place] or Pipes 05/09/2024 Food Insecurity Answer Date [...] AM EDT documented as of this encounter Miscellaneous Notes * Telephone Encounter - Flor Rodríguez RN - 01/12/2025 10:12 AM EDT Triage call Pt reports left arm pain for several days which started with left sided migraine headache. Pt reports , my left eye is smaller in size also . Pt denies injury, overuse, redness, swellingalong vein line. Pt reports some numbness in fingers/hand of left arm. Pt is able to lift arm up toshoulder level and is able to use hand to hop picker cups etc without dropping. Pt is advised to come to [facility] open till 8pm today to be seen by provider. Pt agrees with disposition and plan. Insurance isverified as active. Protocol Used: Arm Pain (Adult) Care Advice Discussed: * Pain Medicines * Pain Medicines - Extra Notes and Warnings * Reasons To Call Back - Moderate pain (such as interferes with normal activities) lasts more than 3 days - Mild pain lasts more than 7 days - Arm swelling occurs - Signs of infection occur (such as spreading redness, warmth, fever) - You become worse * Use a Cold Pack for Pain * Use Heat After 48 Hours for Pain * Telephone Encounter - Yakelin Valdovinos - 01/12/2025 9:56 AM EDT Symptoms: Arm Pain - Not From Injury, Headache Outcome: Schedule an urgent appointment (within 1 hour) or talk to a nurse or provider soon Reason: Can't use the arm normally The caller accepted this outcome. documented in this encounter Plan of Treatment Not on file documented as of this encounter Visit Diagnoses Not on filedocumented in this encounter Additional Health Concerns Assessment Noted Time PHQ-9 Depression Total Score: 17 024 9:09 AM EDT documented as of this encounter Care Teams Gas Plant Operator Relationship Specialty Start Date End Date Patria Sanders DO [address] [place] [id number] PCP - General Family Medicine 09/17/18 documented as of this encounter
--- OUTSIDE RECORDS SUMMARY | 2025-01-12 19:15 | XMS_ITS | Encounter Summary ---
Author Organization [employer] Address [address] [facility] [address] [place] [address] Care Team Providers Care Seating Upholsterer Name Role Phone Patria Sanders DO Primary Care Provider + [phone] Encounter Details Date Type Department Care Team ([facility] st Contact Info) Description 01/12/[address] [facility] [address] [place], [place] [phone] Philipp Keita MD [address] [place] [address] Social History Tobacco Use Types Packs/Day Years [...] problems with any of the following? Lead [place] or Pipes 05/09/2024 Food Insecurity Answer Date [...] encounter Miscellaneous Notes * Telephone Encounter - Tabitha Stout RN - 01/12/2025 11:18 AM EDT See TC from triage nurse 01/12/25. Pt presents to [facility] reporting she had migraine (across forehead to back of head) last night, took APAP without effect and had to sleep but woke up this morning with migraine, on/off dizziness, nausea and numbness and tingling to left arm. Pt denies vision changes, ringing in ears, left jaw pain, SOB, chest pain or other s/s at time of triage. Pt reports she has been eating and drinking.Pt reports she has not had a migraine like this in a long time and reports not previously had numbness/tingling prior. Vitals - Temp 97.9F oral, BP 109/70, pulse 82, 97%, RR18. RN reviewed disposition with Dr. Pacheco whom is in agreement to see pt at next available time. RN reviewed ED precautions with pt while awaiting as pt reports she is going to leave and come back and will call to cancel there at [facility] Walk In if she goes to ED. Pt to F/U as needed. documented in this encounter Plan of Treatment Not on file documented as of this encounter Visit Diagnoses Not on filedocumented in this encounter Additional Health Concerns Assessment Noted Time PHQ-9 Depression Total Score: 17 024 9:09 AM EDT documented as of this encounter Care Teams Seating Upholsterer Relationship Specialty Start Date End Date Patria Sanders DO [address] [place] [address] PCP - General Family Medicine 09/17/18 documented as of this encounter
--- OUTSIDE RECORDS SUMMARY | 2025-01-12 19:15 | XMS_ITS | Clinical Summary ---
Author Organization [employer] Address [address] [facility] [address] [place] [address] Care Team Providers Care Community Service Specialist Name Role Phone Patria Sanders DO Primary Care Provider + [phone] Allergies Active Allergy Reactions Criticality Noted Date Comments Shellfish Allergy 04/09/2024 Medications pantoprazole (Protonix) 40 MG EC tablet Take 1 tablet (40 mg) by mouth before breakfast and before evening meal. Do not crush, chew, or split. 180 tablet 3 4 05/09/20 25 Active cetirizine (ZyrTEC) 10 MG tablet Take 1 tablet (10 mg) by mouth Once per day. 90 tablet 3 4 05/09/20 25 Active Active Problems Problem Noted Date Diagnosed Date Chronic migraine 05/09/2024 Post traumatic stress disorder (PTSD) 05/09/2024 Lactose intolerance 05/09/2024 Irritable bowel syndrome 05/09/2024 Fibromyalgia 05/09/2024 Overview (05/09/2024): DX currently not managed. Allergic rhinitis 05/09/2024 Hematemesis with nausea 04/09/2024 Chronic bipolar disorder 11/22/2016 Underweight 09/03/2015 Resolved Problems Problem Noted Date Diagnosed Date Resolved Date Bipolar disorder 05/09/2024 05/09/2024 Overview (05/09/2024): Pt currently engaged with mental health services at time of this writing. Reports no medication currently/weekly therapy sessiois. Pt informed of [facility] services/declined but will call office if the need to services arises. Denies current issues Weight loss, non-intentional 04/09/2024 05/09/2024 Dizziness 06/27/2018 05/09/2024 Lumbar sprain 07/12/2017 05/09/2024 Depressive disorder 11/22/2016 05/09/20 Encounters Date Type Department Care Team Description 01/12/2025 Orders Only [facility] External Provider, [facility] 01/12/2025 Telephone [facility] [address] [place] [address] Philipp Keita MD 01/12/2025 Telephone [facility] [address], [place] [phone] Patria Sanders DO Nurse Triage 11/28/2024 Population Health Risk Score [facility] () Department [address] [place] [phone] Provider, Population Health Generic from Last 3 Months Immunizations Name Administration Dates Next Due DTaP 04/09/2012, 4,12/02/1993,1990,1990,1990 HPV, Quadrivalent 04/19/2007 Hep B, Adolescent or Pediatric 07/13/1999,1998,04/09/1999 Hib (HbO) 12/02/1993,02/20/1991 IPV 08/14/1994, 1,1990,1989 MMR 12/02/1993,08/27/1991 TD (adult), 2 Lf tetanus tox oid, preservative free, adsorbed 07/02/2003 Tdap 03/24/2022,06/20/2010 Varicella 1995 Social History Tobacco Use Types Packs/Day Years Used Date Smoking Tobacco: Every Day Cigarettes Passive Smoke Exposure: Current Smokeless Tobacco: Never Tobacco Cessation:Ready to Q uit: Not Asked; Counseling Given: Not Answered Depression Answer Date Recorded Patient Health Questionnaire-9 Score 17 05/09/2024 Patient Health Questionnaire-9 Score 17 05/09/2024 Last PHQ-9: Questionnaire Data Not on file 0 05/09/2024 Housing Stability Answer Date Recorded What is your housing situation today? I have goldy sing 05/09/[address] you li ve. Do you have problems with any of the following? Lead [place] or [place] 05/09/2024 Food Insecurity Answer Date [...] Orientation Straight 07/17/2022 10 :17 AM EDT Last Filed Vital Signs Vital Sign Reading Time Taken Comments Blood Pressure 102/65 05/09/2024 9:05 AM EDT Pulse 72 05/09/2024 9:05 AM EDT Temperature 36.2 ??C (97.2 ??F) 05/09/2024 9:05 AM ED T Respiratory Rate 16 05/09/2024 9:05 AM EDT Oxygen Saturation 98% 05/09/2024 9:05 AM EDT Inhaled Oxygen Concentration - - Weight 35.2 kg (77 lb 9.6 oz) 05/09/2024 9:05 AM EDT Height 149.9 cm (4' 11 ) 05/09/2024 9:05 AM EDT Body Mass Index 15.67 05/09/2024 9:05 AM EDT Plan of Treatment Health Maintenance Due Date Last Done Comments Hepatitis B Vaccines (4 of 4 - 4-dose series) 07/30/1999 07/13/1999, 05/12/1999, 04/09/1999 Alcohol/Substance Use Screening 2002 Family Planning (PISQ) 2005 HPV Vaccines (2 - 3-dose series) 05/17/2007 04/19/2007 Pneumococcal Vaccine: Pediatrics (0 to 5 Years) and At-Risk Patients (6 to 49) Years) (1 of 2 - PCV) 2009 Dental Oral Exam 10/01/2021 03/30/2021, 07/05/2017 Dental Prophylaxis 10/01/2021 03/30/2021, 0 05/16/2018, 07/06/2017 Dental X-Ray: Bitewings 03/31/2022 03/30/2021, 07/05 Dental X-Ray: Full Mouth 03/31/2024 03/30/2021, 06/17 Pap Smear 04/01/2024 04/01/2021, 04/09/2020 COVID-19 Vaccine ( season) 2024 08/17/2021, 02/02/2021 Influenza Vaccine (#1) 2024 Depression Screening 05/09/2025 05/09/2024, 05/09/20 SDOH Screening 05/09/2025 05/09/2024 Tobacco Screening 05/09/2025 05/09/2024 Cervical Cancer Screening 04/01/2026 HPV/Cotest 04/01/2026 04/01/2021, 03/17, 04/09/2020, Additional history exists Lipid Panel 06/30/2026 06/30/2021, 04/09/2020 DTaP/Tdap/Td Vaccines (9 - Td or Tdap) 03/24/2032 03/24/2022, 04/09/2012, 06/20/2010, Additional history exists Zoster Vaccines (1 of 2) 2040 RSV Patients and Patients Aged 60 years or older (1 - 1-dose 75+ series) 2065 HIB Vaccines Completed 12/02/1993, 02/20/1991 IPV Vaccines Completed 08/14/1994, 02/1991, 1990, Additional history exists HIV Screening Completed 04/09/2024, 06/17, 04/09/2020 Hepatitis C Screening Completed 04/09/2024 , 06/30/2021, 04/09/2020 Hepatitis A Vaccines Aged Out No long er eligible based on patient's age to complete this topic Meningococcal Vaccine Aged Out No moses yuko eligible based on patient's age to complete this topic RSV under 20 months Aged Out No longe r eligible based on patient's age to complete this topic Rotavirus Vaccines Aged Out No longer eligible based on patient's age to complete this topic Procedures Procedure Name Priority Date/Time Associated Diagnosis Comments XR ELBOW 1-2 VIEWS LEFT Routine 01/12/2025 6:29 PM EDT XR SHOULDER 2+ VIEWS LEFT Routine 01/12/2025 11:59 AM EDT HEPATITIS C VIRAL RNA, QUANTITATIVE, REAL-TIME PCR Routine 04/09/2024 11:31 AM EDT Weight loss, non-intentional HIV 1/2 ANTIGEN/ANTIBODY, FOURTH GENERATION W/RFL Routine 04/09/2024 11:31 AM EDT Weight loss, non-intentional LIPID PANEL, STANDARD Routine 06/30/2021 8:54 AM EDT HPV GENOTYPES 16,18/45 Routine 04/01/2021 12:00 AM EDT THINPREP IMAGING SYSTEM PAP Routine 04/01/2021 12:00 AM EDT PROPHYLAXIS - ADULT Routine 03/30/2021 1 2:00 AM EDT INTRAORAL - COMPLETE SERIES OF RADIOGRAPHIC IMAGES Routine 03/30/2021 12:00 AM EDT PERIODIC ORAL EVALUATION - ESTABLISHED PATIENT Routine 03/30/2021 12:00 AM EDT from Last 3 Months or Most Recently Relevant to Health Maintenance Results * XR Elbow 1-2 Views Left (01/12/2025 6:29 PM EDT) Anatomical Region Laterality Modality Upper Extremities, Elbow Left Radiogr aphic Imaging 01/12/2025 6:29 PM EDT Narrative 01/12/2025 6:30 PM EDT ? [facility] ?[address] ?[place] [address] ?XRay Report ? Signed ? Patient: Byrne,Aury ?MR#: [id number] ?? 68 ? : 1990 ?Acct:[id number] ? Age/Sex: 34 / F ?ADM Date: 01/12/25 ? Loc: HO.ED ? Attending Dr: ? Ordering Physician: Hrameet Rankin MD ?? Date of Service: 01/12/25 ?? Procedure(s): XR elbow LT 2V ?? Accession Number(s): [id number] ? cc: Harmeet Rankin MD; Patria Sanders [...] MD in OV> ?01/12/25 1830 ? DD/ 28 ? TD/TT: 01/12/251828 ? Cytology Laboratory Manager: ? Procedure Note Dwain, Image - 01/12/[address] [address] XRay Report Signed Patient: Monster Byrne#: [id number] 68 : 1990Acct:[id number] Age/Sex: 34 / FADM Date: 01/12/25 Loc: HO.ED Attending Dr: Ordering Physician: Harmeet Rankin MD Date of Service: 01/12/25 Procedure(s): XR elbow LT 2V Accession Number(s): [id number] cc: Harmeet Rankin MD; Patria Sanders DO [...] signed by Daniel Valenzuela MD in OV> 01/12/25 1830 DD/ 28 TD/TT: 01/12/251828 Cytology Laboratory Manager: us [facility] External Provider IMG XR PROCEDURES Final Result * XR Shoulder 2+ Views Left (01/12/2025 11:59 AM EDT) Anatomical Region Laterality Modality Upper Extremities, Shoulder Left Radi ographic Imaging 01/12/2025 11:5 9 AM EDT Narrative 01/12/2025 12:31 PM EDT ? [facility] ?[address] ?[place] [address] ?XRay Report ? Signed ? Patient: Aury Byrne ?MR#: [id number] ?? 68 ? : 1990 ?Acct:[id number] ? Age/Sex: 34 / F ?ADM Date: 01/12/25 ? Loc: HO.ED ? Attending Dr: ? Ordering Physician: Denver Sheikh ?? Date of Service: 01/12/25 ?? Procedure(s): XR shoulder LT min 2V ?? Accession Number(s): [id number] ? cc: Patria Sanders DO; Denver Sheikh [...] DD/ 1159 ? TD/TT: 01/12/25 1211 ? Cytology Laboratory Manager: ? Procedure Note Donlynnter, Image - 01/12/[address] [address] XRay Report Signed Patient: Monster Byrne#: [id number] 68 : 1990Acct:[id number] Age/Sex: 34 / FADM Date: 01/12/25 Loc: .ED Attending Dr: Ordering Physician: Denver Sheikh Date of Service: 01/12/25 Procedure(s): XR shoulder LT min 2V Accession Number(s): [id number] cc: Patria Sanders DO; Denevr Sheikh EXAMINATION: XR SHOULDER, LEFT CLINICAL INFORMATION: [...] 01/12/25 1229 DD/ 1159 TD/TT: 01/12/25 1211 Cytology Laboratory Manager: [facility] External Provider IMG XR PROCEDURES Final Result * Hepatitis C Viral RNA, Quantitative, Real-Time PCR (04/09/2024 11:31 AM EDT) Pathologist [facility] Hepatitis C Viral Load <15 NOT DETECTED NOT DETECTED IU/mL [facility] HCV Log PCR <1.18 NOT DETECTED NOT DETECTED Log IU/mL [facility] Comment:For additional infor luis, please refer tohttp://education.The Point/faq/LWI13e0(This link is being provided for informational/educational purposes only.)THIS TEST WAS PERFORMED AT:[facility] [place] [phone] RUGGIERO MD Blood 04/09/2024 11:3 1 AM EDT 04/09/2024 1:01 PM EDT Result [facility] Sharla Luo MD LAB BLOOD ORDERABLES Final Result [facility] [address] [place] [address] [phone] * HIV-1/2 Antigen and Antibodies, Fourth Generation, with Reflexes (04/09/2024 11:31 AM EDT) Pathologist [facility] HIV AB/AG Nonreactive Nonreactive [facility] Comment:HIV-1 p24 Ag and/or HIV-1/HIV-2 Ab not detected.A test result that is nonreactive does not exclude thepossibility of exposure to or infection with HIV-1 and/orHIV-2. Nonreactive results in this assay for individualswith prior exposure to HIV-1 and/or HIV-2 may be due toantigen and antibody levels that are below the limit ofdetection of this assay.The [employer] HIV Ag/Ab Combo assay result andsupplemental assay results should be interpreted inconjunction with the patient's clinical presentation,history and other laboratory results. If the results areinconsistent with clinical evidence, additional testing issuggested to confirm the result. Blood Venous blood specimen / Unknown 04/09/2024 11:31 AM EDT 04/09/2024 1:01 PM EDT us Sharla Luo MD LAB BLOOD ORDERABLES Final Result Performing Organization Address City/[facility]/ZIP Co de Phone Number [facility] [address] [place] [address] [phone] * LIPID PANEL, STANDARD (06/30/2021 8:54 AM EDT) Chol/HDLC Ratio 2.8 <5.0 (calc) [facility] Cholesterol, Total 149 <200 mg/dL [facility] HDL Cholesterol 54 > OR = 50 mg/dL [facility] LDL Cholesterol 79 mg/dL (calc) [facility] Comment: Reference range: <100 ?? Desirable range <100 mg/dL for primary prevention; ?? <70 mg/dL for patients with CHD or diabetic patients ?? with > or = 2 CHD risk factors. ?? LDL-C is now calculated using the Raul-Stanley ?? calculation, which is a validated novel method providing ?? better accuracy than the Friedewald equation in the ?? estimation of LDL-C. ?? Raul DENIS et al. PRUDENCIO. 2013;310(19): 3481-2289 ?? (http://education.[employer].Kids Calendar/faq/MIL398) Non-HDL Cholesterol 95 <130 mg/dL (calc) [facility] Comment: For patients with diabetes plus 1 major ASCVD risk ?? factor, treating to a non-HDL-C goal of <100 mg/dL ?? (LDL-C of <70 mg/dL) is considered a therapeutic ?? option. Triglycerides 76 <150 mg/dL [facility] 06/30/2021 8:54 AM EDT us Patria Sanders DO LAB BLOOD ORDERABLES Final R esult Performing Organization Address City/[facility]/ZIP Co de Phone Number [facility] [address] * (ABNORMAL) THINPREP TIS PAP (04/01/2021 12:00 AM EDT) Clinical Information: None given [facility] COMMENT SEE COMMENT [facility] Comment: EXPLANATORY NOTE: ? The Pap is a screening test for cervical cancer. It is ?? not a diagnostic test and is subject to false negative ?? and false positive results. It is most reliable when a ?? satisfactory sample, regularly obtained, is submitted ?? with relevant clinical findings and history, and when ?? the Pap result is evaluated along with historic and ?? current clinical information. ?? COMMENT: This Pap test has been evaluated with computer assisted technology. [facility] Electrician Substation : SEE COMMENT [facility] Comment: BJ, CT(ASCP) CT screening location: [address] ??[id number] General Categorization: EPITHELIAL CELL ABNORMALITY(A) [facility] Interpretation/R esult: Atypical Squamous Cells of Undetermined Significance (ASC-US)(A) [facility] LMP: NONE [facility] PATHOLOGIST: SEE COMMENT [facility] Comment: Dayanara Reilly M.D. Direct , Board Certified in Anatomic and Clinical Pathology and Cytopathology (electronic signature) Consulting Pathologist [facility] [address] [place] [address] Prev. BX: NONE [facility] Prev. PAP: NONE [facility] SOURCE: Cervix [facility] Statement Of Adequacy: SEE COMMENT [facility] Comment: Satisfactory for evaluation. Endocervical/transformation zone component present. Age and/or menstrual status not provided 04/01/2021 us Patria Sanders DO LAB PATHOLOGY ORDERABLES Fin al Result [facility] [address] * HPV GENOTYPES 16,18/45 (04/01/2021 12:00 AM EDT) HPV 16 RNA NOT DETECTED NOT DETECTED [facility] HPV 18/45 RNA NOT DETECTED NOT DETECTED [facility] Comment: Methodology: Auto Parts Handler Mediated Amplification The analytical performance characteristics of this assay have been determined by [employer]. The modifications have not been cleared or approved by the FDA. This assay has been validated pursuant to the CLIA regulations and is used for clinical purposes. 04/01/2021 us Patria Sanders DO LAB CYTOLOGY ORDERABLES Mae omaira Result [facility] [address] from Last 3 Months or Most Recently Relevant to Health Maintenance Insurance HS FULL Care Teams Community Service Specialist Relationship Specialty Start Date End Date Patria Sanders DO [address] [place] [phone] PCP - General Family Medicine 09/17/18
--- OUTSIDE RECORDS SUMMARY | 2025-01-12 19:15 | XMS_ITS | Encounter Summary ---
Author Organization [employer] Address [address] [facility] [address] [place] [address] Care Team Providers Care Home Appliances Mechanic Name Role Phone Patria Sanders DO Primary Care Provider + [phone] Encounter Details Date Type Department Care Team (Latest Contact Info) Description 03/30/2021 Abstract [facility] CONVERSIONS Dental, Provider, DDS Social History Tobacco Use Types Packs/Day Years [...] Diagnoses Not on filedocumented in this encounter Care Teams Home Appliances Mechanic Relationship Specialty Start Date End Date Patria Sanders DO [address] [place] [phone] PCP - General Family Medicine 09/17/18 documented as of this encounter
[2025-01-12 19:49] VITALS: BP 104/60; PULSE 75; RESP 18; TEMP 36.8; O2SAT 99
== END 2025-01-12 19:49 | disposition home or self-care (01) ==
PROVIDERS: Emergency Provider Emergency Medicine; PCP Family Medicine
DX: M77.02 Medial epicondylitis, left elbow (principal); R20.0 Anesthesia of skin; M79.602 Pain in left arm
CPT/HCPCS: 73030; 73070; 99283

== ENCOUNTER → 2025-01-12 11:59 | Outpatient (BNV) | payer MEDICAID, SELFPAY | PROVIDERS: PCP Family Medicine; Visit Provider Radiology Diagnostic Radiology | DX: M25.512 Pain in left shoulder (principal); M25.522 Pain in left elbow | CPT/HCPCS: 73030; 73070 ==

== ENCOUNTER 2025-07-07 13:08 | Outpatient (REF) | payer SELFPAY ==
--- NOTE | ~2025-07-07 | XR_ITS ---
EXAMINATION: XR LUMBOSACRAL SPINE CLINICAL INFORMATION: worsening LBP COMPARISON: None available. TECHNIQUE: Three views of the lumbosacral spine. FINDINGS: There are 5 nonrib-bearing lumbar segments. Vertebral body height and alignment is preserved. T12-L1 demonstrates mild disc space narrowing and small anterior endplate osteophytes. XR/XR lumbar spine 2-3V IMPRESSION: Mild degenerative disc disease is evident at T12-L1. Electronically signed by: Nino Vuong MD 07/07/2025 01:48 PM EDT
--- OUTSIDE RECORDS SUMMARY | 2025-07-07 11:30 | XMS_ITS | Encounter Summary ---
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 I have goldy julio 06/30/[address] you li ve. Do you have problems with any of the following? None of the above 06/30/2025 Food Insecurity Answer Date Recorded Within the past 12 months, y ou worried that your food would run out before you got money to buy more: Never True 06/30/2025 Within the past 12 months,th e food you bought just didn't last and you didn't have enough money to get more: Never True Transportation Answer Date Recorded In the past 12 months, has l ack of transportation kept you from medical appts, meetings, work or from getting things needed for daily living? No 06/30/2025 Utilities Answer Date Recorded In the past 12 months, has t he electric, gas, oil or water company threatened to shut off services in your home? No 06/30/2025 Depression Answer Date Recorded Patient Health Questionnaire-2 Score 3 07/07/2025 Internet Access Answer Date Recorded Internet Access Q1 Yes 06/30/2025 Internet Access Q2 Not on file 06/30/2025 Comments No Sex and Gender Information Value Date Recorded Sex Assigned at Female 07/17/2022 10:17 AM EDT Legal Sex Female 10:17 AM EDT Gender Identity Female 07/17/2022 10:17 AM EDT Sexual Orientation Straight 07/17/2022 10 :17 AM EDT documented as of this encounter Last Filed Vital Signs Vital Sign Reading Time Taken Comments Blood Pressure 100/60 07/07/2025 11:32 AM EDT Pulse 88 07/07/2025 11:32 AM EDT Temperature 36.9 C (98.4 F) 07/07/2025 11:32 AM EDT Respiratory Rate 20 07/07/2025 11:32 AM EDT Oxygen Saturation 98% 07/07/2025 11:32 AM EDT Inhaled Oxygen Concentration - - Weight 36.9 kg (81 lb 4 oz) 07/07/2025 11:32 AM EDT Height 149.9 cm (4' 11 ) 07/07/2025 11:32 AM EDT Body Mass Index 16.41 07/07/2025 11:32 AM EDT documented in this encounter Functional Status * Over the past 2 weeks, how often have you been bothered by any of the following problems? Question Answer Date of Assessment Author Patient Health Questionnaire-2 Score 3 07/07/2025 4:16 PM EDT Missy Medrano MA * Little interest or pleasure in doing things Answer Date of Assessment Author Several days 07/07/2025 4:16 PM EDT Missy Zavala MA * Feeling down, depressed, or hopeless Answer Date of Assessment Author More than half the days 07/07/2025 4:16 PM EDT Missy Grider MA * Trouble falling or staying asleep, or sleeping too much Answer Date of Assessment Author Nearly every day 07/07/2025 4:16 PM EDT Missy Cee MA * Feeling tired or having little energy Answer Date of Assessment Author Nearly every day 07/07/2025 4:16 PM EDT Missy Cee MA * Poor appetite or overeating Answer Date of Assessment Author More than half the days 07/07/2025 4:16 PM EDT Missy Grider MA * Feeling bad about yourself - or that you are a failure or have let yourself or your family down Answer Date of Assessment Author More than half the days 07/07/2025 4:16 PM EDT Missy Grider MA * Trouble concentrating on things, such as reading the newspaper or watching television Answer Date of Assessment Author More than half the days 07/07/2025 4:16 PM EDT Missy Grider MA * Moving or speaking so slowly that other people could have noticed? Or the opposite - being so fidgety or restless that you have been moving around a lot more than usual. Answer Date of Assessment Author Nearly every day 07/07/2025 4:16 PM EDT Missy Cee MA * Thoughts that you would be better off or hurting yourself in some way Answer Date of Assessment Author Not at all 07/07/2025 4:16 PM EDT Missy Zavala MA * Patient Health Questionnaire-9 Score Answer Date of Assessment Author 18 07/07/2025 4:16 PM EDT Missy Zavala MA * How difficult have these problems made it for you to do your work, take care of things at home, or get along with other people? Answer Date of Assessment Author Extremely difficult 07/07/2025 4:16 PM EDT Missy Dean MA * Over the last 2 weeks, how often have you been bothered by any of the following problems? Question Answer Date of Assessment Author Feeling nervous, anxious, or on edge 3 07/07/2025 4:15 PM EDT Missy Medrano MA Not being able to stop or control worrying 3 07/07/2025 4:15 PM EDT Missy Medrano MA Worrying too much about different things 3 07/07/2025 4:15 PM EDT Missy Medrano MA Trouble relaxing 3 07/07/2025 4:15 PM EDT Missy Grider MA Being so restless that it is hard to sit still 3 07/07/2025 4:15 PM EDT Missy Medrano MA Becoming easily annoyed or irritable 2 07/07/2025 4:15 PM EDT Missy Medrano MA Feeling afraid as if something awful might happen 2 07/07/2025 4:15 PM EDT Missy Cee MA ROSALIA-7 Total Score 19 07/07/2025 4:15 PM EDT Missy Medrano MA documented as of this encounter Plan of Treatment Not on file documented as of this encounter Procedures Procedure Name Priority Date/Time Associated Diagnosis Comments XR LUMBAR SPINE 2-3 VIEWS Routine 07/07/2025 1:29 PM EDT Chronic bilateral low back pain with bilateral sciatica documented in this encounter Results * XR Lumbar Spine 2-3 Views (07/07/2025 1:29 PM EDT) Anatomical Region Laterality Modality Spine, L-spine Radiographic Makayla ging 07/07/2025 1:29 PM EDT Narrative 07/07/2025 1:51 PM EDT [facility] [address] [place] [address] XRay Report Signed Patient: Aury Byrne MR#: [id number] 68 : 1990 Acct:[id number] Age/Sex: 35 / F ADM Date: 07/07/25 Loc: HO.HHCX Attending Dr: Patria Sanders DO Ordering Physician: Patria Sanders DO Date of Service: 07/07/25 Procedure(s): XR lumbar spine 2-3V Accession Number(s): [id number] cc: Patria Sanders DO Reason for Exam: worsening LBP EXAMINATION: XR LUMBOSACRAL SPINE CLINICAL INFORMATION: worsening LBP COMPARISON: None available. TECHNIQUE: Three views of the lumbosacral spine. FINDINGS: There are 5 nonrib-bearing lumbar segments. Vertebral body height and alignment is preserved. T12-L1 demonstrates mild disc space narrowing and small anterior endplate osteophytes. XR/XR lumbar spine 2-3V IMPRESSION: Mild degenerative disc disease is evident at T12-L1. Electronically signed by: Nino Vuong MD 07/07/2025 01:48 PM EDT RP Dictated By: Nino Vuong MD Signed By: <Electronically signed by Nino Vuong MD in OV> 07/07/25 1348 DD/ 1329 TD/TT: 07/07/25 1344 Cleaning Manager: Procedure Note Donotuseinterpreter, Image - 07/07/[address] [address] XRay Report Signed Patient: Monster Byrne#: [id number] 68 : 1990Acct:[id number] Age/Sex: 35 / FADM Date: 07/07/25 Loc: HO.HHCX Attending Dr: Patria Sanders DO Ordering Physician: Patria Sanders DO Date of Service: 07/07/25 Procedure(s): XR lumbar spine 2-3V Accession Number(s): [id number] cc: Patria Sanders DO Reason for Exam: worsening LBP EXAMINATION: XR LUMBOSACRAL SPINE CLINICAL INFORMATION: worsening LBP COMPARISON: None available. TECHNIQUE: Three views of the lumbosacral spine. FINDINGS: There are 5 nonrib-bearing lumbar segments. Vertebral body height and alignment is preserved. T12-L1 demonstrates mild disc space narrowing and small anterior endplate osteophytes. XR/XR lumbar spine 2-3V IMPRESSION: Mild degenerative disc disease is evident at T12-L1. Electronically signed by: Nino Vuong MD 07/07/2025 01:48 PM EDT RP Dictated By: Nino Vuong MD Signed By: <Electronically signed by Nino Vuong MD in OV> 07/07/25 1348 DD/ 1329 TD/TT: 07/07/25 1344 Cleaning Manager: Patria Sanders DO IMG XR PROCEDURES Edited Res ult - Final documented in this encounter Visit Diagnoses Diagnosis Chronic bilateral low back pain with bilateral sciatica- Primary documented in this encounter Additional Health Concerns Assessment Noted Time PHQ-9 Depression Total Score: 18 025 4:16 PM EDT documented as of this encounter Care Teams Facilities Plant Engineer Relationship Specialty Start Date End Date Patria Sanders DO [address] [place] [address] PCP - General Family Medicine 09/17/18 documented as of this encounter
--- OUTSIDE RECORDS SUMMARY | 2025-07-07 17:05 | XMS_ITS | Encounter Summary ---
Author Organization [employer] Address [address] [facility] 7t [place] [address] Care Team Providers Care Life Skills Trainer Name Role Phone GailPatria oh Primary Care Provider + [phone] Encounter Details Date Type Department Care Team (Latest Contact Info) Description 07/07/2025 Travel Social History Tobacco Use Types Packs/Day Years [...] AM EDT documented as of this encounter Functional Status * Over the [...] documented as of this encounter Care Teams Life Skills Trainer Relationship Specialty Start Date End Date Patria Sanders DO [address] [place] [address] PCP - General Family Medicine 09/17/18 documented as of this encounter
--- OUTSIDE RECORDS SUMMARY | 2025-07-07 17:05 | XMS_ITS | Encounter Summary ---
Author Organization [employer] Address [address] [place] [address] 7 [place] [address] Care Team Providers Care Mortgage Branch Manager Name Role Phone Patria Sanders DO Primary Care Provider + [phone] Encounter Details Date Type Department Care Team [...] on filedocumented in this encounter Care Teams Mortgage Branch Manager Relationship Specialty Start Date End Date Patria Sanders DO [address] [place] [address] PCP - General Family Medicine 09/17/18 documented as of this encounter
--- OUTSIDE RECORDS SUMMARY | 2025-07-07 17:06 | XMS_ITS | Encounter Summary ---
Author Organization [employer] Address [address] [facility] 7t [place] [address] Care Team Providers Care Consulting Psychiatrist Name Role Phone KhaiPatria mckee Primary Care Provider + [phone] Encounter Details Date Type Department Care Team (Late st Contact Info) Description 04/07/2025 Orders Only [facility] [address] [place] [address] ProviderFlorentin MD Social History Tobacco Use Types Packs/Day Years [...] problems with any of the following? Lead [place] or [place] 05/09/2024 Food Insecurity Answer Date [...] t he electric, gas, oil or water [employer] threatened to shut off services in your [...] Procedure Name Priority Date/Time Associated Diagnosis Comments COLONOSCOPY Routine 04/07/2025 3:37 PM EDT documented in this encounter Results * Colonoscopy (04/07/2025 3:37 PM EDT) Anatomical Region Laterality Modality Endoscopy Historical Provider ENDOSCOPY PROCEDURE ORDER CAT Final Result documented in this encounter Visit Diagnoses Not on filedocumented in this encounter Additional Health Concerns Assessment Noted Time PHQ-9 Depression Total Score: 17 024 9:09 AM EDT documented as of this encounter Care Teams Consulting Psychiatrist Relationship Specialty Start Date End Date Patria Sanders DO [address] [place] [id number] PCP - General Family Medicine 09/17/18 documented as of this encounter
--- OUTSIDE RECORDS SUMMARY | 2025-07-07 17:06 | XMS_ITS | Encounter Summary ---
Author Organization [employer] Address [address] [facility] 7t [place] [address] Care Team Providers Care Vp Cardiovascular Service Line Name Role Phone Patria Sanders DO Primary Care Provider + [phone] Reason for Visit * Reason Onset Date Comments Nurse Triage 01/12/2025 Encounter Details Date Type Department Care Team (Late st Contact Info) Description 01/12/2025 Telephone [facility] [address] [place] [address] Patria Sanders DO [address] [place] [address] Nurse Triage Social History Tobacco Use Types [...] problems with any of the following? Lead [place] or [place]ipes 05/09/2024 Food Insecurity Answer Date [...] and is able to use hand to grain picker cups etc without dropping. Pt is advised to come to [facility] open till 8pm today to be seen [...] documented as of this encounter Care Teams Vp Cardiovascular Service Line Relationship Specialty Start Date End Date Patria Sanders DO [address] [place] [id number] PCP - General Family Medicine 09/17/18 documented as of this encounter
--- OUTSIDE RECORDS SUMMARY | 2025-07-07 17:06 | XMS_ITS | Encounter Summary ---
Author Organization [employer] Address [address] [facility] 7t [place] [address] Care Team Providers Care Holistic Nutritionist Name Role Phone Patria Sanders DO Primary Care Provider + [phone] Reason for Visit * Reason Onset Date Comments Medication Question 07/07/2025 Encounter Details Date Type Department Care Team ([facility] st Contact Info) Description 07/07/2025 Telephone [facility] MEDICINE [address] [place] [address] Patria Sanders DO [address] [place] [address] Medication Question Social History Tobacco Use Types Packs/Day Years [...] Medrano MA documented as of this encounter Miscellaneous Notes * Telephone Encounter - Melodie Olivares - 07/07/2025 2:52 PM EDT Tc from pt stating that she was seen today by PCP and was informed that a medication would be sent,but she has not received it yet. Contact pt at [phone] documented in this encounter Plan of Treatment Not on file documented as of this encounter Visit Diagnoses Not on filedocumented in this encounter Additional Health Concerns Assessment Noted Time PHQ-9 Depression Total Score: 18 025 4:16 PM EDT documented as of this encounter Care Teams Holistic Nutritionist Relationship Specialty Start Date End Date Patria Sanders DO [address] [place] [address] PCP - General Family Medicine 09/17/18 documented as of this encounter
--- OUTSIDE RECORDS SUMMARY | 2025-07-07 17:06 | XMS_ITS | Clinical Summary ---
Author Organization [facility] Address [address] [place] [address] Care Team Providers Care Railroad Dining Car Steward/Stewardess Name Role Phone Unavailable Primary Care Provider [...] Cervical Cancer Screening: P ap Smear 2011 HPV Vaccines (1 - 3-dose SCD M series) 2017 DTaP,Tdap,and Td Vaccines (2 - Tdap) 04/09/2022 04/09/2012 HIV Screening 08/15/2022 Hepatitis C Screening 08/15/2022 Social Influencers of Health Screening 08/15/2022 Depression Screening 09/17/2024 COVID-19 Vaccine (1 - 2023-2 5 season) 2025 Influenza Vaccine (#1) 2025 RSV Immunization Adult Patie nts (1 - 1-dose 75+ series) 2065 HIB Vaccines Aged Out No longer eligi [...] 5 Years) and At-Risk Patients (6 to 49 Years) Aged Out No longer eligi ble based on patient's age to complete this topic RSV Immunization Patients Un derik 20 months Aged Out No longer eligible b ased on patient's age to complete this topic Varicella Vaccines Aged Out No longer eligible based on patient's age to complete this topic
--- OUTSIDE RECORDS SUMMARY | 2025-07-07 17:06 | XMS_ITS | Clinical Summary ---
Author Organization [employer] Address [address] [place] [address] Care Team Providers Care Hoop Flaring Machine Operator Name Role Phone GailPatria oh Primary Care Provider [phone] Allergies Active Allergy Reactions Criticality Noted Date Comments Shellfish Allergy 04/09/2024 Medications pantoprazole (Protonix) 40 MG EC tablet Take 1 tablet (40 mg) by mouth before breakfast and before evening meal. Do not crush, chew, or split. 180 tablet 3 4 Active cetirizine (ZyrTEC) 10 MG tablet Take 1 tablet (10 mg) by mouth Once per day. 90 tablet 3 4 Active escitalopram (Lexapro) 10 MG tablet Take 1 tablet (10 mg) by mouth Once per day. 30 tablet 2 5 10/05/19 26 Active hydrOXYzine HCl (Atarax) 10 MG tablet Take 1 tablet (10 mg) by mouth every 6 (six) hours if needed for anxiety. 30 tablet 1 5 07/07/20 26 Active Active Problems Problem Noted Date Diagnosed Date Chronic migraine 05/09/2024 Post traumatic stress disorder (PTSD) 05/09/2024 Lactose intolerance 05/09/2024 Irritable bowel syndrome 05/09/2024 Fibromyalgia 05/09/2024 Overview (05/09/2024): DX currently not managed. Allergic rhinitis 05/09/2024 Hematemesis with nausea 04/09/2024 Chronic bipolar disorder (CMS/HCC) 11/22/2016 Underweight 09/03/2015 Resolved Problems Problem Noted Date Diagnosed Date Resolved Date Bipolar disorder 05/09/2024 05/09/2024 Overview (05/09/2024): Pt currently engaged with mental health services at time of this writing. Reports no medication currently/weekly therapy sessiois. Pt informed of [facility] services/declined but will call office if the need to services arises. Denies current issues Weight loss, non-intentional 04/09/2024 05/09/2024 Dizziness 06/27/2018 05/09/2024 Lumbar sprain 07/12/2017 05/09/2024 Depressive disorder 11/22/2016 05/09/20 Encounters Date Type Department Care Team Description 07/07/2025 11:30 AM EDT Office Visit [address] [id number] Patria Sanders DO Chronic bilateral low back pain with bilateral sciatica (Primary Dx) 07/07/[address] [address] Patria Sanders DO Medication Question 07/07/2025 Travel 06/30/2025 Patient Outreach [facility] [address] [place], [place] [phone] Patria Sanders DO Pre-visit Planning (SDOH negative, Tobacco screening negative. ) 06/29/[address] [address] Patria Sanders DO Chart Prep 06/29/[address] [address] Ptaria Sanders DO Chart Prep 06/23/[address] [phone] Patria Sanders DO Recall Appointment 06/23/2025 Travel 04/07/2025 Orders Only [facility] [address] [place], [place] [phone] Provider, MD Florentin from Last 3 Months Immunizations Immunization Administration Dates Next Due DTaP 04/09/2012, 4,12/02/1993,1990,1990,1990 HPV, Quadrivalent 04/19/2007 Hep B, Adolescent or Pediatric 07/13/1999,1998,04/09/1999 Hib (HbOC) 12/02/1993,02/20/1991 IPV 08/14/1994, 1,1990,1989 MMR 12/02/1993,08/27/1991 TD [...] Mass Index 16.41 07/07/2025 11:32 AM EDT Plan of Treatment Health Maintenance Due Date Last Done Comments Disability Screening 1990 Hepatitis B Vaccines (4 of 4 - 4-dose series) 07/30/1999 07/13/1999, 05/12/1999, 04/09/1999 Alcohol/Substance Use Screening 2002 Family Planning (PISQ) 2005 HPV Vaccines (2 - 3-dose series) 05/17/2007 04/19/2007 Pneumococcal Vaccine: Pediatrics (0 to 5 Years) and At-Risk Patients (6 to 49) Years (1 of 2 - PCV) 2009 Dental Oral Exam 10/01/2021 03/30/2021, 07/05/2017 Dental Prophylaxis 10/01/2021 03/30/2021, 0 05/16/2018, 07/06/2017 Dental X-Ray: Bitewings 03/31/2022 03/30/2021, 07/05 Dental X-Ray: Full Mouth 03/31/2024 03/30/2021, 06/17 Pap Smear 04/01/2024 04/01/2021, 04/09/2020 Depression Monitoring 11/09/2024 05/09/2024, 024 COVID-19 Vaccine ( season) 2025 08/17/2021, 02/02/2021 Influenza Vaccine (#1) 2025 Cervical Cancer Screening 04/01/2026 HPV/Cotest 04/01/2026 04/01/2021, 03/17, 04/09/2020, Additional history exists Lipid Panel 06/30/2026 06/30/2021, 04/09/2020 SDOH Screening 06/30/2026 06/30/2025 Tobacco Screening 07/07/2026 07/07/2025 DTaP/Tdap/Td Vaccines (9 - Td or Tdap) [...] bilateral low back pain with bilateral sciatica COLONOSCOPY Routine 04/07/2025 3:37 PM EDT HEPATITIS C VIRAL RNA, QUANTITATIVE, REAL-TIME [...] Relevant to Health Maintenance Results * XR Lumbar Spine 2-3 Views (07/07/2025 1:29 PM EDT) Anatomical Region Laterality Modality Spine, L-spine Radiographic Makayla ging 07/07/2025 1:29 PM EDT Narrative 07/07/2025 1:51 [place] [address] XRay Report Signed Patient: Aury Byrne MR#: [id number] 68 : 1990 Acct:[id number] Age/Sex: 35 / F ADM Date: 07/07/25 Loc: HO.HHCX Attending Dr: Patria Sanders DO Ordering Physician: Patria Sanders DO Date of Service: 07/07/25 Procedure(s): XR lumbar spine 2-3V Accession Number(s): [id number] cc: Patria Sanders DO Reason for Exam: [...] 07/07/25 1348 DD/ 1329 TD/TT: 07/07/25 1344 Chain Link Fence Installer: Procedure Note Donotuseinterpreter, Image - 07/07/[address] [address] XRay Report Signed Patient: Monster Byrne#: [id number] 68 : 1990Acct:[id number] Age/Sex: 35 / FADM Date: 07/07/25 Loc: .HHCX Attending Dr: Patria Sanders DO Ordering Physician: Patria Sanders DO Date of Service: 07/07/25 Procedure(s): XR lumbar spine 2-3V Accession Number(s): [id number] cc: Patria Sanders DO Reason for Exam: [...] 07/07/25 1348 DD/ 1329 TD/TT: 07/07/25 1344 Chain Link Fence Installer: Patria Ridleyrylee DO IMG XR PROCEDURES Edited Res ult - Final * Colonoscopy (04/07/2025 3:37 PM EDT) Anatomical Region Laterality Modality Endoscopy Historical Provider ENDOSCOPY PROCEDURE ORDER CAT Final Result * Hepatitis C Viral RNA, Quantitative, Real-Time PCR (04/09/2024 11:31 AM EDT) Pathologist [facility] Hepatitis C Viral Load <15 NOT DETECTED NOT DETECTED IU/mL [facility] HCV Log PCR <1.18 NOT DETECTED NOT DETECTED Log IU/mL [facility] Comment:For additional infor matkulwinder, please refer tohttp://education.[facility]/faq/DXT31c4(This link is being provided for informational/educational purposes only.)THIS TEST WAS PERFORMED AT:[facility] [place] [id number] RUGGIERO MD Blood 04/09/2024 11:3 1 AM EDT 04/09/2024 1:01 PM EDT Sharla Luo MD LAB BLOOD ORDERABLES Final Result [facility] [address] [place] [phone] * HIV-1/2 Antigen and Antibodies, Fourth Generation, with Reflexes (04/09/2024 11:31 AM EDT) Pathologist [facility] HIV AB/AG Nonreactive Nonreactive [facility] Comment:HIV-1 p24 Ag and/or HIV-1/HIV-2 Ab not detected.A test result that is nonreactive does not exclude thepossibility of exposure to or infection with HIV-1 and/orHIV-2. Nonreactive results in this assay for individualswith prior exposure to HIV-1 and/or HIV-2 may be due toantigen and antibody levels that are below the limit ofdetection of this assay.The [facility] HIV Ag/Ab Combo assay result andsupplemental assay results should be interpreted inconjunction with the patient's clinical presentation,history and other laboratory results. If the results areinconsistent with clinical evidence, additional testing issuggested to confirm the result. Blood Venous blood specimen / Unknown 04/09/2024 11:31 AM EDT 04/09/2024 1:01 PM EDT us Sharla Luo MD LAB BLOOD ORDERABLES Final Result Performing Organization Address [facility] Co de Phone Number [facility] [address] [place] [phone] * LIPID PANEL, STANDARD (06/30/2021 8:54 AM EDT) Chol/HDLC Ratio 2.8 <5.0 (calc) [facility] Cholesterol, Total 149 <200 mg/dL [facility] HDL Cholesterol 54 > OR = 50 mg/dL [facility] LDL Cholesterol 79 mg/dL (calc) [facility] Comment: Reference range: <100 Desirable range <100 mg/dL for primary prevention; <70 mg/dL for patients with CHD or diabetic patients with > or = 2 CHD risk factors. LDL-C is now calculated using the Raul-Stanley calculation, which is a validated novel method providing better accuracy than the Friedewald equation in the estimation of LDL-C. Raul SS et al. PRUDENCIO. 2013;310(19): 1799-0777 (http://education.[employer].com/faq/WPH346) Non-HDL Cholesterol 95 <130 mg/dL (calc) [facility] Comment: For patients with diabetes plus 1 major ASCVD risk factor, treating to a non-HDL-C goal of <100 mg/dL (LDL-C of <70 mg/dL) is considered a therapeutic option. Triglycerides 76 <150 mg/dL [facility] 06/30/2021 8:54 AM EDT us Patria Sanders DO LAB BLOOD ORDERABLES Final R esult [facility] [address] [place] [phone], [place] * (ABNORMAL) THINPREP TIS PAP (04/01/2021 12:00 AM EDT) Clinical Information: None given [facility] COMMENT SEE COMMENT [facility] Comment: EXPLANATORY NOTE: The Pap is a screening test for cervical cancer. It is not a diagnostic test and is subject to false negative and false positive results. It is most reliable when a satisfactory sample, regularly obtained, is submitted with relevant clinical findings and history, and when the Pap result is evaluated along with historic and current clinical information. COMMENT: This Pap test has been evaluated with computer assisted technology. [facility] Costumer : SEE COMMENT [facility] Comment: JAZMIN CT(ASCP) CT screening location: [place] [address] General Categorization: EPITHELIAL CELL ABNORMALITY(A) [facility] Interpretation/R esult: Atypical Squamous Cells of Undetermined Significance (ASC-US)(A) [facility] LMP: NONE GIVEN [facility] PATHOLOGIST: SEE COMMENT [facility] Comment: Dayanara Reilly M.D. Direct , Board Certified in Anatomic and Clinical Pathology and Cytopathology (electronic signature) Consulting Pathologist [facility] [address] [place] [address] Prev. BX: NONE GIVEN [facility] Prev. PAP: NONE GIVEN [facility] SOURCE: Cervix [facility] Statement Of Adequacy: SEE COMMENT [facility] Comment: Satisfactory for evaluation. Endocervical/transformation zone component present. Age and/or menstrual status not provided 04/01/2021 us Patria Sanders DO LAB PATHOLOGY ORDERABLES Fin al Result [facility] [address] [place] [id number], [place] * HPV GENOTYPES 16,18/45 (04/01/2021 12:00 AM EDT) HPV 16 RNA NOT DETECTED NOT DETECTED [facility] HPV 18/45 RNA NOT DETECTED NOT DETECTED [facility] Comment: Methodology: Epic Manager Mediated Amplification The analytical performance characteristics of this assay have been determined by [employer]. The modifications have not been cleared or approved by the FDA. This assay has been validated pursuant to the CLIA regulations and is used for clinical purposes. 04/01/2021 Patria Sanders DO LAB CYTOLOGY ORDERABLES Mae castano Result [facility] [address] from Last 3 Months or Most Recently Relevant to Health Maintenance Insurance [id number] [employer] Care Teams Hoop Flaring Machine Operator Relationship Specialty Start Date End Date Patria Sanders DO [address] [place] [phone] PCP - General Family Medicine 09/17/18
== END 2025-07-07 13:09 | disposition home or self-care (01) ==
LOC: HO.HHCX 13:08
PROVIDERS: Visit Provider Family Medicine
DX: M54.42 Lumbago with sciatica, left side (principal); M54.41 Lumbago with sciatica, right side; G89.29 Other chronic pain
CPT/HCPCS: 72100

== ENCOUNTER → 2025-07-07 13:09 | Outpatient (BNV) | payer SELFPAY | PROVIDERS: Visit Provider Radiology Diagnostic Radiology | DX: M51.35 Other intervertebral disc degeneration, thoracolumbar region (principal) | CPT/HCPCS: 72100 ==